=== PATIENT | male | born 1930 | race Caucasian/White ===

== ENCOUNTER 2017-04-11 08:29 | Inpatient (IN) | payer MEDICARE, OTHER ==
[~2017-04-11] VITALS: Ht 162.6 cm; Wt 75.0 kg
[~2017-04-11 08:29] MED LIST: CARV12.598 PO; CELE100C PO; CHOL50009 PO; CRES10 PO; FOLI-49 PO; LEFL20TA18 PO; LEVO300T5 PO
[2017-04-11] MEDS ORDERED: ONDANSETRON 4 MG INJ IV PRN (11:00)
[2017-04-11] MEDS ORDERED: FUROSEMIDE 40 MG INJ IV ONE (11:00)
[2017-04-11] MEDS ORDERED: ACETAMINOPHEN 325 MG TAB PO PRN (11:00)
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
--- NOTE | 2017-04-11 15:12 | RADRPT ---
PROCEDURE: XR Chest. CLINICAL INDICATION: Shortness of breath. TECHNIQUE: Single frontal view. COMPARISON: 05/01/2014. FINDINGS: There is bilateral interstitial disease consistent with pulmonary edema, worse than seen previously. There is no other airspace disease. The heart is mildly enlarged. There is a permanent biventricular pacemaker. Calcification is present in the aorta consistent with atherosclerosis. There is no pleural effusion or pneumothorax. There has been prior right shoulder surgery with metal hardware noted. IMPRESSION: 1. Pulmonary edema, worse than seen previously. 2. Cardiomegaly and atherosclerosis. 3. Permanent pacemaker. 4. Prior right shoulder surgery. RPTAT: QQ .Rohan Townsend MD, MD Date Time Electronically viewed and signed by .Rohan Townsend MD, MD on 04/11/2017 15:11 .R/
[2017-04-11 17:56] VITALS: Ht 162.6 cm; Wt 75.0 kg
[2017-04-11 18:06] VITALS: BP 123/60; PULSE 70; RESP 18
[2017-04-11 18:12] VITALS: PULSE 69
[2017-04-11 20:00] VITALS: PULSE 69
[2017-04-11 20:24] VITALS: BP 105/51; RESP 20
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
[2017-04-11] MEDS: SOD FERRIC GLUC COMPLX 125 MG in SOD CHLORIDE 0.9% 100 ML IVPB SCH (21:43)
[2017-04-11] MEDS: POTASSIUM CHLORIDE (SR) 8 MEQ CAP PO SCH (21:43)
[2017-04-11] MEDS: FUROSEMIDE 20 MG INJ IV SCH (21:43)
[2017-04-11] MEDS: FOLIC ACID 1 MG TAB GTB SCH (21:43)
--- NOTE | 2017-04-11 21:48 | CONS ---
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 He has had progressively worsening shortness of breath last 4-5 days, the worst over the past 2 days. He can't walk, he can't take care of himself due to of debilitating RA. He denies any chest pain,dizziness, loc , melena, hemoptysis, falls or diarrhea. The patient denies any fevers associated with this and came to the emergency room for evaluation. Patient denies any factors for his symptoms ROS Constitutional: fatigue, nausea, poor po, weight change, No chills, No diaphoresis, No disoriented, No febrile, No improved, No no complaints, No other Eyes: other (left eye blindness.), No discharge, No no complaints, No pain, No redness, No visual change ENT: No bleeding, No congestion, No discharge, No dysphagia, No no complaints, No other, No pain, No sore throat Respiratory: pleuritic pain, shortness of breath, No cough, No no complaints, No other, No pain, No sputum, No wheezing Cardiovascular: lightheadedness, orthopenea, palpitations, paroxysmal nocturnal dyspnea, No chest pain, No edema, No no complaints, No other Gastrointestinal: constipation, flatus, nausea, passing stool, No blood, No decreased appetite, No diarrhea, No no complaints, No other, No pain, No vomiting Genitourinary: dysuria, flank pain, No bleeding, No discharge, No hematuria, No no complaints, No other Musculoskeletal: back pain, bone/joint pain, neck pain, other (RA sequale.), restricted range of motion, No no complaints, No swelling Skin: bruising, pruritis, rash, skin lesions, No erythema, No laceration, No no complaints, No other Neurologic: dizziness, headache, No confusion, No focal-weakness, No no complaints, No other, No seizure, No syncope Endocrine: dry skin, weight change, No no complaints, No other, No polydypsia, No polyuria, No temp intolerance Psychological: anxiety, depression, No confusion, No nl mood/affect, No no complaints, No other, No suicidal PMH/Family/Social Past Medical History Medical History: angina, colitis, coronary artery disease, diverticulitis, GERD , GI bleed, high cholesterol, hypertension, hypothyroid, peptic ulcer disease, urinary tract infection Past Surgical History Past Surgical Hx: other (pacemakert implantation.) Family History Significant Family History: heart disease, COPD, hypertension Social History Alcohol Use: none Smoking Status: Never smoker Drug Use: none Eyes: other (left eye blindness.), No discharge, No no complaints, No pain, No redness, No visual change ENT: No bleeding, No congestion, No discharge, No dysphagia, No no complaints, No other, No pain, No sore throat Respiratory: pleuritic pain, shortness of breath, No cough, No no complaints, No other, No pain, No sputum, No wheezing Cardiovascular: lightheadedness, orthopenea, palpitations, paroxysmal nocturnal dyspnea, No chest pain, No edema, No no complaints, No other Gastrointestinal: constipation, flatus, nausea, passing stool, No blood, No decreased appetite, No diarrhea, No no complaints, No other, No pain, No vomiting Genitourinary: dysuria, flank pain, No bleeding, No discharge, No hematuria, No no complaints, No other Musculoskeletal: back pain, bone/joint pain, neck pain, other (RA sequale.), restricted range of motion, No no complaints, No swelling Skin: bruising, pruritis, rash, skin lesions, No erythema, No laceration, No no complaints, No other Neurologic: dizziness, headache, No confusion, No focal-weakness, No no complaints, No other, No seizure, No syncope Psychological: anxiety, depression, No confusion, No nl mood/affect, No no complaints, No other, No suicidal Past Medical History Medical History: angina, colitis, coronary artery disease, diverticulitis, GERD , GI bleed, high cholesterol, hypertension, hypothyroid, peptic ulcer disease, urinary tract infection Past Surgical History Past Surgical Hx: other (pacemakert implantation.) Social History Alcohol Use: none Smoking Status: Never smoker Drug Use: none Exam/Review of Systems Vital Signs Vitals Vital Signs Date Time Temp Pulse Resp B/P Pulse Ox O2 Delivery O2 Flow Rate FiO2 04/11/17 20:24 98.5 69 20 105/51 97 04/11/17 18:06 Nasal Cannula 2.0 Exam Exam Constitutional: alert, frail, oriented, other (malnurished.), well developed, No distress, No non-verbal Psych: anxiety, depression, No confusion, No nl mood/affect, No no complaints, No other, No suicidal Head: atraumatic, normocephalic, No hematomas, No lacerations, No other Eyes: EOMI, PERRL (left pupil is not clearly delineated.), nl lids, No fundi, disc, No icteric, No nl conjunctiva, No nl sclera, No other ENMT: nl nasal mucosa & septum Neck: bruits, jvd, nuchal rigidity Respiratory: congested cough, crackles/rales, diminished breath sounds, intercostal retraction, respirations, No clear to auscultation, No labored breathing, No normal air movement, No other, No tactile fremitus, No wheezing Cardiovascular: bruits, jugular venous distention (JVD), nl pulses, other ( palpable body of the left subclavian area pacemaker.), regular rate and rhythm, systolic murmur, No S3, No S4, No diastolic murmur, No edema, No gallop, No irregular rhythm, No murmurs/extra sounds, No rub Gastrointestinal: bowel sounds, nl liver, spleen, soft, No ascites, No distended, No firm, No hepatomegaly, No mass, No non-tender, No other, No rebound or guarding, No splenomegaly, No surgical scars, No tender Genitourinary - Male: nl penis, nl scrotum, No CVA tenderness, No discharge, No other Musculoskeletal: joint tenderness, muscle tone, muscle weakness, other (All classical adwanced RA sequale.) Extremities: other (scar of th left knee surgery and right shoulder surgeries. 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.), nl speech, numbness Skin: nl turgor (decreased.), No diaphoresis, No ecchymosis, No laceration, No other, No puncture, No rash or lesions Results Result Diagram: 04/11/17 0900 04/11/17 0900 Results 24 hrs Laboratory Tests Test 04/11/17 09:00 04/11/17 19:21 White Blood Count 10.8 Red Blood Count 2.64 #L Hemoglobin 7.8 #L Hematocrit 25.2 #L Mean Corpuscular Volume 95.5 Mean Corpuscular Hemoglobin 29.5 Mean Corpuscular Hemoglobin Concent 31.0 L Red Cell Distribution Width 14.2 Platelet Count 335 Mean Platelet Volume 9.7 Neutrophils % 58.4 Lymphocytes % 26.1 Monocytes % 7.0 Eosinophils % 7.6 H Basophils % 0.3 Nucleated Red Blood Cells % 0.0 Neutrophils # 6.3 Lymphocytes # 2.8 Monocytes # 0.8 Eosinophils # 0.8 H Basophils # 0.0 Nucleated Red Blood Cells # 0.0 Sodium Level 144 Potassium Level 4.0 Chloride Level 114 H Carbon Dioxide Level 23 Anion Gap 11 Blood Urea Nitrogen 22 H Creatinine 1.34 H Glucose Level 102 Calcium Level 8.3 L Iron Level 30 L Total Iron Binding Capacity 183 L Percent Iron Saturation 16 L Troponin I < 0.012 < 0.012 B-Type Natriuretic Peptide 2250 H Magnesium Level 1.8 Creatine Kinase 24 Creatine Kinase Index 9.5 Creatinine Kinase MB (Mass) 2.27 Medications Medications Current Medications Influenza Virus Vaccine (Fluzone) 0.5 ml ONCE ONCE IM* ; Start 04/13/17 at 09: 00; Stop 04/13/17 at 09:01 Enalapril Maleate (Vasotec) 2.5 mg DAILY PO ; Start 04/11/17 at 20:00 Pantoprazole (Protonix Tab) 40 mg DAILY@06 PO ; Start 04/12/17 at 06:00 Potassium Chloride 8 meq 8 meq DAILY PO Last administered on 04/11/17 21:43; Admin Dose 8 MEQ; Start 04/11/17 at 20:00 Ferric Sodium Gluconate Complex/ Sodium Chloride (Ferrlecit/NS) 110 ml @ 110 mls/hr Q24H IVPB Last administered on 04/11/17 21:43; Admin Dose 110 MLS/HR; Start 04/11/17 at 21:00; Stop 04/15/17 at 21:59 Levothyroxine Sodium (Synthroid) 50 mcg DAILY@06 PO ; Start 04/12/17 at 06:00 Folic Acid (Folic Acid) 1 mg DAILY GTB Last administered on 04/11/17 21:43; Admin Dose 1 MG; Start 04/11/17 at 20:00 IRASEMA ARAMBULA MD Apr 11, 2017 21:48
[2017-04-11] MEDS: ENALAPRIL 2.5 MG TAB PO SCH (23:30)
[2017-04-12] VITALS (15 sets, daily range): BP systolic 73–109; BP diastolic 41–79; PULSE 69–72; RESP 16–30
[2017-04-12] MEDS ORDERED: LEVOTHYROXINE 50 MCG TAB PO SCH (06:00)
[2017-04-12] MEDS: PANTOPRAZOLE (EC) 40 MG TAB PO SCH (06:05)
[2017-04-12] MEDS: FUROSEMIDE 20 MG INJ IV SCH ×2 (06:05→16:31)
[2017-04-12] MEDS: FOLIC ACID 1 MG TAB GTB SCH (09:00)
--- NOTE | 2017-04-12 09:07 | CONS ---
Date/Time of Note Date/Time of Note DATE: 04/12/17 TIME: 08:57 Assessment/Plan Assessment/Plan Chief Complaint/Hosp Course Dyspnea: Currently being treated for CHF which is certainly contributing but his JVP appears flat on exam but he has significant fine crackles. I wonder if he has a component of interstitial lung disease/pulmonary fibrosis from his RA. CT chest would be reasonable to evaluate Acute on chronic diastolic heart failure: Mild on exam. Last known EF 2014 was normal. Dual chamber PPM: 100% paced RA: ?contributing to above -continue lasix for now at current dose -add home coreg at lower dose as marginal BP, coreg 3.125mg BID -high resolution chest CT to eval for ILD -check echo Problems: Consultation Date/Type/Reason Admit Date/Time Apr 11, 2017 at 10:58 Date of Consultation: Apr 12, 2017 Type of Consultation: Cardiology Reason for Consultation CHF Referring Provider: MADDIE MICHAELS MD Hx of Present Illness 87 yo M with a h/o diastolic heart failure, dual chamber PPM, severe RA with significant physical limitation, who was admitted for SOB and is being treated for CHF exacerbation. The pt notes that he has had 2 days of worsening SOB and orthopnea but he now feels back to his baseline. He is not very active due to bilateral knee pain (had replacement of both per history). He can only take a few steps with his walker. No chest pain. No prior [place]. EF 2014 was preserved. His senior investment manager is Dr. Alvarado. per HPI, otherwise negative Past Medical History per HPI Medical History: angina, colitis, coronary artery disease, diverticulitis, GERD , GI bleed, high cholesterol, hypertension, hypothyroid, peptic ulcer disease, urinary tract infection Past Surgical History Past Surgical Hx: other (pacemakert implantation.) Social History Alcohol Use: none Smoking Status: Never smoker Drug Use: none Exam/Review of Systems Vital Signs Vitals Vital Signs Date Time Temp Pulse Resp B/P Pulse Ox O2 Delivery O2 Flow Rate FiO2 04/12/17 08:21 69 04/12/17 07:03 98.6 18 109/55 99 04/12/17 00:00 Nasal Cannula 3.0 Intake and Output 04/11/17 04/11/17 04/12/17 15:00 23:00 07:00 Intake Total 280 ml Output Total 500 ml Balance -220 ml Exam Constitutional: alert, oriented Psych: nl mood/affect, no complaints Head: atraumatic, normocephalic Neck: supple, No jvd Respiratory: crackles/rales, No clear to auscultation (fine crackles to 2/6 lungs) Cardiovascular: regular rate and rhythm, systolic murmur (2/6 GOLDEN), No edema Gastrointestinal: non-tender, soft, No distended Musculoskeletal: nl extremities to inspection Extremities: No cyanosis 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: nl mental status, nl speech Skin: No rash or lesions Results EKG: V-paced Result Diagram: 04/12/1772504/12/17725 Results 24 hrs Laboratory Tests Test 04/11/17 09:00 04/11/17 19:21 04/11/17 20:45 04/12/17 00:55 White Blood Count 10.8 Red Blood Count 2.64 #L Hemoglobin 7.8 #L Hematocrit 25.2 #L Mean Corpuscular Volume 95.5 Mean Corpuscular Hemoglobin 29.5 Mean Corpuscular Hemoglobin Concent 31.0 L Red Cell Distribution Width 14.2 Platelet Count 335 Mean Platelet Volume 9.7 Neutrophils % 58.4 Lymphocytes % 26.1 Monocytes % 7.0 Eosinophils % 7.6 H Basophils % 0.3 Nucleated Red Blood Cells % 0.0 Neutrophils # 6.3 Lymphocytes # 2.8 Monocytes # 0.8 Eosinophils # 0.8 H Basophils # 0.0 Nucleated Red Blood Cells # 0.0 Sodium Level 144 Potassium Level 4.0 Chloride Level 114 H Carbon Dioxide Level 23 Anion Gap 11 Blood Urea Nitrogen 22 H Creatinine 1.34 H Glucose Level 102 Calcium Level 8.3 L Iron Level 30 L Total Iron Binding Capacity 183 L Percent Iron Saturation 16 L Troponin I < 0.012 < 0.012 0.019 B-Type Natriuretic Peptide 2250 H Magnesium Level 1.8 Creatine Kinase 24 21 L Creatine Kinase Index 9.5 9.3 Creatinine Kinase MB (Mass) 2.27 1.96 Erythrocyte Sedimentation Rate 110 H Absolute Reticulocyte Count 0.053 Percent Reticulocyte Count 1.6 H Uric Acid 10.0 H Ferritin 256.0 Lactate Dehydrogenase 511 Carcinoembryonic Antigen 3.7 Vitamin B12 Level 841 Folate > 20.0 H Thyroid Stimulating Hormone (TSH) 5.890 H Test 04/12/17 07:26 White Blood Count 9.8 Red Blood Count 3.49 #L Hemoglobin 10.0 #L Hematocrit 33.4 #L Mean Corpuscular Volume 95.7 Mean Corpuscular Hemoglobin 28.7 L Mean Corpuscular Hemoglobin Concent 29.9 L Red Cell Distribution Width 14.5 Platelet Count 390 Mean Platelet Volume 10.0 Neutrophils % 51.1 Lymphocytes % 31.2 Monocytes % 7.2 Eosinophils % 9.5 H Basophils % 0.4 Nucleated Red Blood Cells % 0.0 Neutrophils # 5.0 Lymphocytes # 3.1 H Monocytes # 0.7 Eosinophils # 0.9 H Basophils # 0.0 Nucleated Red Blood Cells # 0.0 Sodium Level 145 H Potassium Level 4.2 Chloride Level 106 Carbon Dioxide Level 32 H Anion Gap 11 Blood Urea Nitrogen 28 H Creatinine 1.77 H Glucose Level 109 Calcium Level 9.7 Total Bilirubin 0.2 Direct Bilirubin 0.00 Indirect Bilirubin 0.2 Aspartate Amino Transf (AST/SGOT) 31 Alanine Aminotransferase (ALT/SGPT) 23 Alkaline Phosphatase 99 Total Protein 8.1 Albumin 3.4 Globulin 4.70 H Albumin/Globulin Ratio 0.72 Thyroid Stimulating Hormone (TSH) Pending Medications Medications Current Medications Influenza Virus Vaccine (Fluzone) 0.5 ml ONCE ONCE IM* ; Start 04/13/17 at 09: 00; Stop 04/13/17 at 09:01 Enalapril Maleate (Vasotec) 2.5 mg DAILY PO ; Start 04/11/17 at 20:00 Pantoprazole (Protonix Tab) 40 mg DAILY@06 PO Last administered on 04/12/17 06:05; Admin Dose 40 MG; Start 04/12/17 at 06:00 Potassium Chloride 8 meq 8 meq DAILY PO Last administered on 04/11/17 21:43; Admin Dose 8 MEQ; Start 04/11/17 at 20:00 Ferric Sodium Gluconate Complex/ Sodium Chloride (Ferrlecit/NS) 110 ml @ 110 mls/hr Q24H IVPB Last administered on 04/11/17 21:43; Admin Dose 110 MLS/HR; Start 04/11/17 at 21:00; Stop 04/15/17 at 21:59 Levothyroxine Sodium (Synthroid) 50 mcg DAILY@06 PO Last administered on 06:06; Admin Dose 50 MCG; Start 04/12/17 at 06:00 Folic Acid (Folic Acid) 1 mg DAILY GTB Last administered on 04/11/17t 21:43; Admin Dose 1 MG; Start 04/11/17 at 20:00 ROBERT DOZIER Apr 12, 2017 09:07
[2017-04-12] MEDS: POTASSIUM CHLORIDE (SR) 8 MEQ CAP PO SCH (09:10)
[2017-04-12] MEDS: ENALAPRIL 2.5 MG TAB PO SCH (09:11)
--- NOTE | 2017-04-12 09:46 | PN ---
Date/Time of Note Date/Time of Note DATE: 04/12/17 TIME: 09:39 Assessment/Plan VTE Prophylaxis VTE Prophylaxis Intervention: ambulation, anti-embolic stocking VTE Contraindication Reason: peripheral vascular disease Lines/Catheters IV Catheter Type (from Nrsg): Saline [employer] Central line still needed: No Urinary Cath still in place: No Reason Cath still needed: urinary retention Assessment/Plan Assessment/Plan 1.CHF systolic on diastolic- iproving 2.Pulmonary edema- resolved 3.Rheumatoid arthritis with severe deformity of the right hand more prominent than the left. 4. History of anemia with recent more drop of h&h. 5. History of ischemic heart disease, angina, status post myocardial infarction. 6. History of irregular heart beat and ICD versus pacemaker implantation. 7. Dyslipidemia. 8. Hypothyroidism. 9. Pain syndrome. 10. Unstable gait. 11. Major depression. 12. Hearing impairment. 13. Memory impairment. 14. Posttraumatic stress disorder. His son from complications of malignant melanoma. Family is very supportive. 15.Status post fracture of the right shoulder, status post open reduction internal fixation. 16. Status post fracture and reduction of the left knee, status post knee replacement along with revision and change of prosthesis most probably. 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 Now creat 1.77; elevated. Subjective 24 Hr Interval Summary Constitutional: poor po, requiring IVF, requiring O2, No chills, No diaphoresis, No disoriented, No febrile, No improved, No no complaints, No other Eyes: visual change, No discharge, No no complaints, No other, No pain, No redness ENT: No bleeding, No congestion, No discharge, No dysphagia, No no complaints, No other, No pain, No sore throat Respiratory: shortness of breath, No cough, No no complaints, No other, No pain, No pleuritic pain, No sputum, No wheezing Cardiovascular: paroxysmal nocturnal dyspnea (improved.), No chest pain, No edema, No lightheadedness, No no complaints, No orthopenea , No other, No palpitations Gastrointestinal: decreased appetite, nausea, passing stool, No blood, No constipation, No diarrhea, No flatus, No no complaints, No other , No pain, No vomiting Genitourinary: flank pain, No bleeding, No discharge, No dysuria, No hematuria, No no complaints, No other Exam/Review of Systems Vital Signs Vitals Vital Signs Date Time Temp Pulse Resp B/P Pulse Ox O2 Delivery O2 Flow Rate FiO2 04/12/17 08:21 69 04/12/17 07:03 98.6 18 109/55 99 04/12/17 00:00 Nasal Cannula 3.0 Intake and Output 04/11/17 04/11/17 04/12/17 15:00 23:00 07:00 Intake Total 280 ml Output Total 500 ml Balance -220 ml Exam Constitutional: alert, oriented, well developed, No distress, No frail, No non-verbal, No obese, No other Psych: nl mood/affect, No anxiety, No confusion, No depression, No no complaints, No other, No suicidal Head: atraumatic, No hematomas, No lacerations, No normocephalic, No other Eyes: EOMI, nl lids (left lid is swollen.) ENMT: intubated, nl nasal mucosa & septum Neck: jvd (less prominent than yesterday.), nuchal rigidity, No bruits, No masses, No non-tender, No other, No thyromegaly Respiratory: clear to auscultation (uipper parts.), crackles/rales (lower parts.), respirations, tactile fremitus, No congested cough, No diminished breath sounds, No intercostal retraction, No labored breathing, No normal air movement, No other, No wheezing Cardiovascular: bruits, jugular venous distention (JVD), systolic murmur, No S3, No S4, No diastolic murmur, No edema, No gallop, No irregular rhythm, No murmurs/extra sounds, No nl pulses, No other, No regular rate and rhythm, No rub Gastrointestinal: bowel sounds, nl liver, spleen, soft, No ascites, No distended, No firm, No hepatomegaly, No mass, No non-tender, No other, No rebound or guarding, No splenomegaly, No surgical scars, No tender Genitourinary - Male: CVA tenderness, nl penis, nl scrotum, No discharge, No other Musculoskeletal: joint tenderness (RA changes, adwanced.), muscle tone, muscle weakness, other (unable to get up without help.), No nl extremities to inspection, No nl gait and stance, No range of motion, No spine non-tender, No swelling Extremities: No calf tenderness, No clubbing, No cyanosis, No edema, No normal pulses, No other, No palpable cord, No pitting pedal edema, No tenderness 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: nl mental status (more active and cooperative.), nl speech, numbness, No HUMAN RESOURCES OPERATIONS DIRECTOR II-XII intact, No DTR's symmetric, No confused, No focal weakness, No lethargic, No nl strength, No other, No reflexes, No unresponsive Skin: No diaphoresis, No ecchymosis, No laceration, No nl turgor, No other, No puncture, No rash or lesions Results Result Diagram: 04/12/17 0726 04/12/17 0726 Results 24 hrs Laboratory Tests Test 04/11/17 19:21 04/11/17 20:45 04/12/17 00:55 04/12/17 07:26 Magnesium Level 1.8 Creatine Kinase 24 21 L Creatine Kinase Index 9.5 9.3 Creatinine Kinase MB (Mass) 2.27 1.96 Troponin I < 0.012 0.019 Erythrocyte Sedimentation Rate 110 H Absolute Reticulocyte Count 0.053 Percent Reticulocyte Count 1.6 H Uric Acid 10.0 H Ferritin 256.0 Lactate Dehydrogenase 511 Carcinoembryonic Antigen 3.7 Vitamin B12 Level 841 Folate > 20.0 H Thyroid Stimulating Hormone (TSH) 5.890 H 6.320 H White Blood Count 9.8 Red Blood Count 3.49 #L Hemoglobin 10.0 #L Hematocrit 33.4 #L Mean Corpuscular Volume 95.7 Mean Corpuscular Hemoglobin 28.7 L Mean Corpuscular Hemoglobin Concent 29.9 L Red Cell Distribution Width 14.5 Platelet Count 390 Mean Platelet Volume 10.0 Neutrophils % 51.1 Lymphocytes % 31.2 Monocytes % 7.2 Eosinophils % 9.5 H Basophils % 0.4 Nucleated Red Blood Cells % 0.0 Neutrophils # 5.0 Lymphocytes # 3.1 H Monocytes # 0.7 Eosinophils # 0.9 H Basophils # 0.0 Nucleated Red Blood Cells # 0.0 Sodium Level 145 H Potassium Level 4.2 Chloride Level 106 Carbon Dioxide Level 32 H Anion Gap 11 Blood Urea Nitrogen 28 H Creatinine 1.77 H Glucose Level 109 Calcium Level 9.7 Total Bilirubin 0.2 Direct Bilirubin 0.00 Indirect Bilirubin 0.2 Aspartate Amino Transf (AST/SGOT) 31 Alanine Aminotransferase (ALT/SGPT) 23 Alkaline Phosphatase 99 Total Protein 8.1 Albumin 3.4 Globulin 4.70 H Albumin/Globulin Ratio 0.72 Medications Medications Current Medications Influenza Virus Vaccine (Fluzone) 0.5 ml ONCE ONCE IM* ; Start 04/13/17 at 09: 00; Stop 04/13/17 at 09:01 Enalapril Maleate (Vasotec) 2.5 mg DAILY PO Last administered on 04/12/17 09: 11; Admin Dose 2.5 MG; Start 04/11/17 at 20:00 Pantoprazole (Protonix Tab) 40 mg DAILY@06 PO Last administered on 04/12/17 06:05; Admin Dose 40 MG; Start 04/12/17 at 06:00 Potassium Chloride 8 meq 8 meq DAILY PO Last administered on 04/12/17 09:10; Admin Dose 8 MEQ; Start 04/11/17 at 20:00 Ferric Sodium Gluconate Complex/ Sodium Chloride (Ferrlecit/NS) 110 ml @ 110 mls/hr Q24H IVPB Last administered on 04/11/17 21:43; Admin Dose 110 MLS/HR; Start 04/11/17 at 21:00; Stop 04/15/17 at 21:59 Levothyroxine Sodium (Synthroid) 50 mcg DAILY@06 PO Last administered on 06:06; Admin Dose 50 MCG; Start 04/12/17 at 06:00 Folic Acid (Folic Acid) 1 mg DAILY GTB Last administered on 04/11/17 21:43; Admin Dose 1 MG; Start 04/11/17 at 20:00 Carvedilol (Coreg) 3.125 mg BID PO Last administered on 04/12/17 09:11; Admin Dose 3.125 MG; Start 04/12/17 at 09:30 MADDIE MICHAELS MD Apr 12, 2017 09:46
[2017-04-12] MEDS: MAGNESIUM SULFATE 2 GM/50 ML 50 ML IVPB SCH (10:19)
--- NOTE | 2017-04-12 12:26 | CONS ---
Date/Time of Note Date/Time of Note DATE: 04/12/17 TIME: 12:20 Assessment/Plan Assessment/Plan Additional Assessment/Plan Chest x-ray was reviewed from yesterday which is showing severe fibrotic lung disease. Assessment and recommendations; 1. Patient admitted with shortness of breath is likely is from underlying rheumatoid lung. 2. Difficult to rule out superimposed CHF. 3. History of hypo-thyroidism, history of cardiac arrhythmia. 4. Patient on chronic immunomodulator. Continue current treatment. Obtain 2D echocardiogram. Consultation Date/Type/Reason Admit Date/Time Apr 11, 2017 at 10:58 Date of Consultation: Apr 12, 2017 Type of Consultation: Pulmonary Reason for Consultation Pulmonary consultation requested for evaluation of shortness of breath. Referring physician; Dr. Sky. History of presenting illness; patient is a pleasant 87-year-old white male who was brought into the hospital yesterday by his granddaughter with complaints of shortness of breath going on for the last several weeks. Patient however denies any fever, chest pain, wheezing, cough or any sputum production. Past medical history; 1. Patient with history of advanced rheumatoid arthritis. 2. Patient on chronic immunomodulator with Embrel. 3. History of CHF in the past. 4. History of cardiac arrhythmia, status post pacemaker placement. 5. History of hypothyroidism. 6. History of left knee surgery. 7. History of bilateral cataract surgery. Medications; reviewed. Allergies; none. Social history; patient has a very remote history of very scant smoking. Family history; patient is a . Has 2 living children. No history of any illnesses in the family. 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 Review of systems; denies any headache, visual changes. Any sinus symptoms. Any chest pain. Complains of shortness of breath which has improved. Denies any wheezing. Any sputum production. Denies any abdominal pain, nausea vomiting. Denies any melena or hematochezia. Complains of severe arthritis in hands. Denies any skin changes. Complains of chronic dyspnea on exertion. Complains of chronic orthopnea. Patient has steady weight. General exam; elderly male, awake and alert. Currently in no distress. Constitutional: poor po, requiring IVF, requiring O2, No chills, No diaphoresis, No disoriented, No febrile, No improved, No no complaints, No other Eyes: other (left eye blindness.), No discharge, No no complaints, No pain, No redness, No visual change ENT: No bleeding, No congestion, No discharge, No dysphagia, No no complaints, No other, No pain, No sore throat Respiratory: pleuritic pain, shortness of breath, No cough, No no complaints, No other, No pain, No sputum, No wheezing Cardiovascular: lightheadedness, orthopenea, palpitations, paroxysmal nocturnal dyspnea, No chest pain, No edema, No no complaints, No other Gastrointestinal: constipation, flatus, nausea, passing stool, No blood, No decreased appetite, No diarrhea, No no complaints, No other, No pain, No vomiting Genitourinary: dysuria, flank pain, No bleeding, No discharge, No hematuria, No no complaints, No other Musculoskeletal: back pain, bone/joint pain, neck pain, other (RA sequale.), restricted range of motion, No no complaints, No swelling Skin: bruising, pruritis, rash, skin lesions, No erythema, No laceration, No no complaints, No other Neurologic: dizziness, headache, No confusion, No focal-weakness, No no complaints, No other, No seizure, No syncope Psychological: anxiety, depression, No confusion, No nl mood/affect, No no complaints, No other, No suicidal Past Medical History Medical History: angina, colitis, coronary artery disease, diverticulitis, GERD , GI bleed, high cholesterol, hypertension, hypothyroid, peptic ulcer disease, urinary tract infection Past Surgical History Past Surgical Hx: other (pacemakert implantation.) Social History Alcohol Use: none Smoking Status: Never smoker Drug Use: none Exam/Review of Systems Vital Signs Vitals Vital Signs Date Time Temp Pulse Resp B/P Pulse Ox O2 Delivery O2 Flow Rate FiO2 04/12/17 12:15 69 04/12/17 11:27 98.4 104/56 04/12/17 07:03 18 99 04/12/17 00:00 Nasal Cannula 3.0 Intake and Output 04/11/17 04/11/17 04/12/17 15:00 23:00 07:00 Intake Total 280 ml Output Total 500 ml Balance -220 ml Exam HEENT exam; supple neck, no JVD. No lymphadenopathy. Midline trachea. No thyromegaly. Patient is edentulous and wears dentures. Has a left corneal opacity. Has bilateral intraocular lens implants. Chest exam; scattered crackles bilaterally. S1-S2 audible, no murmurs. Irregular rhythm. Pacemaker in left chest wall. Abdomen exam; soft, nontender. No organomegaly. Bowel sounds audible. Extremity exam; there are severe changes of rheumatoid arthritis involving both hands. There is a well-healed left knee scar. There is no peripheral edema. No clubbing. Pulses 1+ bilaterally. 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 Results Result Diagram: 04/12/17 0726 04/12/17 0726 Results 24 hrs Laboratory Tests Test 04/11/17 19:21 04/11/17 20:45 04/12/17 00:55 04/12/17 07:26 Magnesium Level 1.8 Creatine Kinase 24 21 L Creatine Kinase Index 9.5 9.3 Creatinine Kinase MB (Mass) 2.27 1.96 Troponin I < 0.012 0.019 Erythrocyte Sedimentation Rate 110 H Absolute Reticulocyte Count 0.053 Percent Reticulocyte Count 1.6 H Uric Acid 10.0 H Ferritin 256.0 Lactate Dehydrogenase 511 Carcinoembryonic Antigen 3.7 Vitamin B12 Level 841 Folate > 20.0 H Thyroid Stimulating Hormone (TSH) 5.890 H 6.320 H White Blood Count 9.8 Red Blood Count 3.49 #L Hemoglobin 10.0 #L Hematocrit 33.4 #L Mean Corpuscular Volume 95.7 Mean Corpuscular Hemoglobin 28.7 L Mean Corpuscular Hemoglobin Concent 29.9 L Red Cell Distribution Width 14.5 Platelet Count 390 Mean Platelet Volume 10.0 Neutrophils % 51.1 Lymphocytes % 31.2 Monocytes % 7.2 Eosinophils % 9.5 H Basophils % 0.4 Nucleated Red Blood Cells % 0.0 Neutrophils # 5.0 Lymphocytes # 3.1 H Monocytes # 0.7 Eosinophils # 0.9 H Basophils # 0.0 Nucleated Red Blood Cells # 0.0 Sodium Level 145 H Potassium Level 4.2 Chloride Level 106 Carbon Dioxide Level 32 H Anion Gap 11 Blood Urea Nitrogen 28 H Creatinine 1.77 H Glucose Level 109 Calcium Level 9.7 Total Bilirubin 0.2 Direct Bilirubin 0.00 Indirect Bilirubin 0.2 Aspartate Amino Transf (AST/SGOT) 31 Alanine Aminotransferase (ALT/SGPT) 23 Alkaline Phosphatase 99 Total Protein 8.1 Albumin 3.4 Globulin 4.70 H Albumin/Globulin Ratio 0.72 Medications Medications Current Medications Influenza Virus Vaccine (Fluzone) 0.5 ml ONCE ONCE IM* ; Start 04/13/17 at 09: 00; Stop 04/13/17 at 09:01 Enalapril Maleate (Vasotec) 2.5 mg DAILY PO Last administered on 04/12/17 09: 11; Admin Dose 2.5 MG; Start 04/11/17 at 20:00 Pantoprazole (Protonix Tab) 40 mg DAILY@06 PO Last administered on 04/12/17 06:05; Admin Dose 40 MG; Start 04/12/17 at 06:00 Potassium Chloride 8 meq 8 meq DAILY PO Last administered on 04/12/17 09:10; Admin Dose 8 MEQ; Start 04/11/17 at 20:00 Ferric Sodium Gluconate Complex/ Sodium Chloride (Ferrlecit/NS) 110 ml @ 110 mls/hr Q24H IVPB Last administered on 04/11/17 21:43; Admin Dose 110 MLS/HR; Start 04/11/17 at 21:00; Stop 04/15/17 at 21:59 Folic Acid (Folic Acid) 1 mg DAILY GTB Last administered on 04/11/17 21:43; Admin Dose 1 MG; Start 04/11/17 at 20:00 Carvedilol 3.125 mg 3.125 mg BID PO Last administered on 04/12/17 09:11; Admin Dose 3.125 MG; Start 04/12/17 at 09:30 Magnesium Sulfate (Magnesium Sulfate 2 Gm/50 ml) 50 ml @ 25 mls/hr DAILY IVPB Last administered on 04/12/17 10:19; Admin Dose 25 MLS/HR; Start 04/12/17 at 10:00; Stop 04/13/17 at 09:00 Levothyroxine Sodium (Synthroid) 75 mcg DAILY@06 PO ; Start 04/13/17 at 06:00 MARC BLANCO Apr 12, 2017 12:26
--- NOTE | 2017-04-12 13:14 | RADRPT ---
PROCEDURE: XR Right Shoulder. CLINICAL INDICATION: Right shoulder pain. TECHNIQUE: Two views. Frontal internal rotation and frontal external rotation. COMPARISON: No prior study is available for comparison. FINDINGS: There is a ronaldo in the shaft of the right humerus. Locking screws are present proximally and distally . Alignment of a healed fracture of the shaft of the humerus is anatomic. There are degenerative shekhar nges of the right elbow. There is no acute fracture or dislocation. The articular surfaces are otherwise intact. There is no lytic or blastic lesion. IMPRESSION: 1. Prior open reduction and internal fixation. 2. Degenerative changes of the right elbow. 3. No acute abnormality. RPTAT: QQ .Rohan Townsend MD, Date Time Electronically viewed and signed by .Rohan Townsend MD, on 04/12/2017 13:14 .R/
--- NOTE | 2017-04-12 13:15 | RADRPT ---
PROCEDURE: Right knee radiographs. CLINICAL INDICATION: Right knee pain. Postop. TECHNIQUE: Two views. Frontal and lateral. COMPARISON: No prior studies are available for comparison. FINDINGS: There is no fracture or dislocation. Vascular calcifications are present consistent with atherosclerosis. There is a total right knee arthroplasty which appears satisfactory. There is no lytic or blastic lesion. IMPRESSION: 1. Atherosclerosis. 2. Otherwise unremarkable postoperative appearance of the right knee. RPTAT: QQ .Rohan Townsend MD, MD Date Time Electronically viewed and signed by .Rohan Townsend MD, MD on 04/12/2017 13:15 .R/
--- NOTE | 2017-04-12 13:18 | RADRPT ---
PROCEDURE: XR Left Knee. CLINICAL INDICATION: Left knee pain. Postop. TECHNIQUE: Two views. Frontal and lateral. COMPARISON: No prior studies are available for comparison. FINDINGS: There is no fracture or dislocation. Vascular calcifications are present consistent with atherosclerosis. 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 There is no lytic or blastic lesion. IMPRESSION: 1. Satisfactory postoperative appearance of the left knee. 2. Atherosclerosis. RPTAT: QQ .Rohan Townsend MD, MD Date Time Electronically viewed and signed by .Rohan Townsend MD, on 04/12/2017 13:18 .R/
--- NOTE | 2017-04-12 13:19 | RADRPT ---
PROCEDURE: XR Pelvis. CLINICAL INDICATION: Pelvic pain. TECHNIQUE: Single AP view of the pelvis. COMPARISON: No prior studies are available for comparison. FINDINGS: There is no fracture or dislocation. There is no lytic or blastic lesion. The hip joints are unremarkable. There are degenerative changes of the lower lumbar spine. Vascular calcifications are present consistent with atherosclerosis. The sacroiliac joints are grossly unremarkable. There is diffuse osteopenia. IMPRESSION: 1. Degenerative changes of the lower lumbar spine. 2. Atherosclerosis. 3. Diffuse osteopenia. RPTAT: QQ .Rohan Townsend MD, MD Date Time Electronically viewed and signed by .Rohan Townsend MD, on 04/12/2017 13:19 .R/
--- NOTE | 2017-04-12 13:52 | RADRPT ---
Echocardiogram Report Patient Name: MAU WALLS Gender: Male Date: 1930 Study Date: 12-Apr-2017 Government Contracts Manager: Fred Hameed [facility] Location: 514 Ref. Physician: ROBERT DOZIER Quality: Adequate Procedures: Transthoracic echocardiogram with complete 2D, M-Mode, and doppler examination. Indications: Congestive Heart Failure. Shortness of breath. 2D/M Mode Doppler Measurement Value Normal Ranges Measurement Value Normal Ranges LVIDd 2D 3.9 3.5 - 5.6 cm AV Peak Lenny 1.3 m/sec LVIDs 2D 3.1 2.1 - 4.1 cm AV Peak PG 7.0 mmHg FS 2D 18.9 % LVOT Peak Lenny 0.8 m/sec LVPWd 2D 1.3 0.6 - 1.1 cm LVOT Peak PG 3.0 mmHg IVSd 2D 1.5 0.6 - 1.1 cm MV E Peak Lenny 0.4 m/sec IVS/LVPW 2D 1.1 MV A Peak Lenny 0.6 m/sec AoR Diam 2D 3.3 2.0 - 3.7 cm MV E/A 0.8 LA/Ao 2D 1 0 - 1 MV Decel Time 155 msec EDV 2D 57.5 cm3 MV E/A 0.8 ESV 2D 30.7 cm3 TR Peak Lenny 2.7 m/sec LA Dimen 2D 3.6 2.3 - 4.0 cm TR Peak PG 29.0 mmHg RVSP 32.0 mmHg Findings Left Ventricle: Normal left ventricular systolic function. Normal left ventricular cavity size. Moderate concentric left ventricular hypertrophy. Ejection fraction is visually estimated at 55 %. Tissue Doppler/Mitral Doppler indices are consistent with impaired relaxation (Stage I diastolic dysfunction). Right Ventricle: Normal right ventricular size. Normal right ventricular systolic function. Left Atrium: The left atrium is normal in size. Right Atrium: The right atrium is normal in size. Mitral Valve: Mitral valve leaflets appear mildly thickened. Mild mitral annular calcification. There is trace to mild mitral valve regurgitation. Aortic Valve: Normal appearance of the aortic valve. No significant aortic stenosis or insufficiency. Tricuspid Valve: Normal appearance of the tricuspid valve. Estimated peak PA systolic pressure 32 mmHg. There is mild tricuspid regurgitation. Pulmonic Valve: Normal pulmonic valve appearance. Pericardium: Normal pericardium with no significant pericardial effusion. Aorta: Normal aortic root. IVC: Normal size and normal respiratory collapse consistent with normal right atrial pressure. Conclusions 1.The left ventricle is normal in size and systolic function. 2.Estimated left ventricular ejection fraction of 55%. 3.Moderate concentric left ventricular hypertrophy. Grade 1 diastolic dysfunction. Electronically Signed By: Akshat Chaudhari 12-Apr-2017 13:51:42 -0700 Patient Name: MAU WALLS Study Date: 12-Apr-2017 [id number]
--- NOTE | 2017-04-12 13:52 | RADRPT ---
Echocardiogram Report Patient Name: MAU WALLS Gender: Male Date: 1930 Study Date: 12-Apr-2017 Manufacturing Machine Operator: Fred Hameed [facility] Location: 514 Ref. Physician: ROBERT DOZIER Quality: Adequate Procedures: Transthoracic echocardiogram with complete 2D, M-Mode, and doppler examination. Indications: Congestive Heart Failure. Shortness of breath. 2D/M Mode Doppler Measurement Value Normal Ranges Measurement Value Normal Ranges LVIDd 2D 3.9 3.5 - 5.6 cm AV Peak Lenny 1.3 m/sec LVIDs 2D 3.1 2.1 - 4.1 cm AV Peak PG 7.0 mmHg FS 2D 18.9 % LVOT Peak Lenny 0.8 m/sec LVPWd 2D 1.3 0.6 - 1.1 cm LVOT Peak PG 3.0 mmHg IVSd 2D 1.5 0.6 - 1.1 cm MV E Peak Lenny 0.4 m/sec IVS/LVPW 2D 1.1 MV A Peak Lenny 0.6 m/sec AoR Diam 2D 3.3 2.0 - 3.7 cm MV E/A 0.8 LA/Ao 2D 1 0 - 1 MV Decel Time 155 msec EDV 2D 57.5 cm3 MV E/A 0.8 ESV 2D 30.7 cm3 TR Peak Lenny 2.7 m/sec LA Dimen 2D 3.6 2.3 - 4.0 cm TR Peak PG 29.0 mmHg RVSP 32.0 mmHg Findings Left Ventricle: Normal left ventricular systolic function. Normal left ventricular cavity size. Moderate concentric left ventricular hypertrophy. Ejection fraction is visually estimated at 55 %. Tissue Doppler/Mitral Doppler indices are consistent with impaired relaxation (Stage I diastolic dysfunction). Right Ventricle: Normal right ventricular size. Normal right ventricular systolic function. Left Atrium: The left atrium is normal in size. Right Atrium: The right atrium is normal in size. Mitral Valve: Mitral valve leaflets appear mildly thickened. Mild mitral annular calcification. There is trace to mild mitral valve regurgitation. Aortic Valve: Normal appearance of the aortic valve. No significant aortic stenosis or insufficiency. Tricuspid Valve: Normal appearance of the tricuspid valve. Estimated peak PA systolic pressure 32 mmHg. There is mild tricuspid regurgitation. Pulmonic Valve: Normal pulmonic valve appearance. Pericardium: Normal pericardium with no significant pericardial effusion. Aorta: Normal aortic root. IVC: Normal size and normal respiratory collapse consistent with normal right atrial pressure. Conclusions 1.The left ventricle is normal in size and systolic function. 2.Estimated left ventricular ejection fraction of 55%. 3.Moderate concentric left ventricular hypertrophy. Grade 1 diastolic dysfunction. Electronically Signed By: Akshat Chaudhari 12-Apr-2017 13:51:42 -0700 Patient Name: MAU WALLS Study Date: 12-Apr-2017 [id number]
--- NOTE | 2017-04-12 13:52 | RADRPT ---
Echocardiogram Report Patient Name: MAU WALLS Gender: Male Date: 1930 Study Date: 12-Apr-2017 Escalator Constructor: Fred Hameed [facility] Location: 514 Ref. Physician: ROBERT DOZIER Quality: Adequate Procedures: Transthoracic echocardiogram with complete 2D, M-Mode, and doppler examination. Indications: Congestive Heart Failure. Shortness of breath. 2D/M Mode Doppler Measurement Value Normal Ranges Measurement Value Normal Ranges LVIDd 2D 3.9 3.5 - 5.6 cm AV Peak Lenny 1.3 m/sec LVIDs 2D 3.1 2.1 - 4.1 cm AV Peak PG 7.0 mmHg FS 2D 18.9 % LVOT Peak Lenny 0.8 m/sec LVPWd 2D 1.3 0.6 - 1.1 cm LVOT Peak PG 3.0 mmHg IVSd 2D 1.5 0.6 - 1.1 cm MV E Peak Lenny 0.4 m/sec IVS/LVPW 2D 1.1 MV A Peak Lenny 0.6 m/sec AoR Diam 2D 3.3 2.0 - 3.7 cm MV E/A 0.8 LA/Ao 2D 1 0 - 1 MV Decel Time 155 msec EDV 2D 57.5 cm3 MV E/A 0.8 ESV 2D 30.7 cm3 TR Peak Elnny 2.7 m/sec LA Dimen 2D 3.6 2.3 - 4.0 cm TR Peak PG 29.0 mmHg RVSP 32.0 mmHg Findings Left Ventricle: Normal left ventricular systolic function. Normal left ventricular cavity size. Moderate concentric left ventricular hypertrophy. Ejection fraction is visually estimated at 55 %. Tissue Doppler/Mitral Doppler indices are consistent with impaired relaxation (Stage I diastolic dysfunction). Right Ventricle: Normal right ventricular size. Normal right ventricular systolic function. Left Atrium: The left atrium is normal in size. Right Atrium: The right atrium is normal in size. Mitral Valve: Mitral valve leaflets appear mildly thickened. Mild mitral annular calcification. There is trace to mild mitral valve regurgitation. Aortic Valve: Normal appearance of the aortic valve. No significant aortic stenosis or insufficiency. Tricuspid Valve: Normal appearance of the tricuspid valve. Estimated peak PA systolic pressure 32 mmHg. There is mild tricuspid regurgitation. Pulmonic Valve: Normal pulmonic valve appearance. Pericardium: Normal pericardium with no significant pericardial effusion. Aorta: Normal aortic root. IVC: Normal size and normal respiratory collapse consistent with normal right atrial pressure. Conclusions 1.The left ventricle is normal in size and systolic function. 2.Estimated left ventricular ejection fraction of 55%. 3.Moderate concentric left ventricular hypertrophy. Grade 1 diastolic dysfunction. Electronically Signed By: Akshat Chaudhari 12-Apr-2017 13:51:42 -0700 Patient Name: MAU WALLS Study Date: 12-Apr-2017 [id number]
[2017-04-12] MEDS ORDERED: BUPIVACAINE 0.5%/EPI (SDV) 30 ML INJ INJ ONE (14:00)
[2017-04-12] MEDS ORDERED: BUPIVACAINE INJ SCH (14:30)
[2017-04-12] MEDS ORDERED: EPINEPHRINE INJ SCH (14:30)
[2017-04-12] MEDS ORDERED: BETAMET NA PHOS/AC(6 MG/ML) 5ML INJ IM SCH (15:00)
--- NOTE | 2017-04-12 16:29 | RADRPT ---
PROCEDURE: XR Left Knee. CLINICAL INDICATION: Left knee pain. Postop. TECHNIQUE: Two views. Frontal and lateral. COMPARISON: 04/12/2017. FINDINGS: There is no fracture or dislocation. The soft tissues are normal. There is diffuse osteopenia. Vascular calcifications are present consis tent with atherosclerosis. 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 There is no lytic or blastic lesion. IMPRESSION: 1. Satisfactory postoperative appearance of the left knee. 2. Diffuse osteopenia. 3. Atherosclerosis. RPTAT: QQ .Rohan Townsend MD, MD Date Time Electronically viewed and signed by .Rohan Townsend MD, MD on 04/12/2017 16:28 .R/
[2017-04-12] MEDS ORDERED: SOD CHLORIDE 0.9% 250 ML IV ONE (16:30)
--- NOTE | 2017-04-12 16:33 | RADRPT ---
PROCEDURE: Pelvic ultrasound. CLINICAL INDICATION: Enlarged prostate. TECHNIQUE: Transabdominal ultrasound of the prostate and urinary bladder was performed in the axia l and sagittal planes. COMPARISON: There is no prior study available for comparison. FINDINGS: The prostate volume is 6 cc. The pre void volume of the bladder is 53 milliliter and the postvoid v olume of the bladder is 25 ml. There is no pelvic mass or free fluid. IMPRESSION: 1. Normal size of the prostate. RPTAT: QQ .Rohan Townsend MD, MD Date Time Electronically viewed and signed by .Rohan oTwnsend MD, MD on 04/12/2017 16:33 .R/
--- NOTE | 2017-04-12 16:33 | RADRPT ---
PROCEDURE: Pelvic ultrasound. CLINICAL INDICATION: Enlarged prostate. TECHNIQUE: Transabdominal ultrasound of the prostate and urinary bladder was performed in the axia l and sagittal planes. COMPARISON: There is no prior study available for comparison. FINDINGS: The prostate volume is 6 cc. The pre void volume of the bladder is 53 milliliter and the postvoid v olume of the bladder is 25 ml. There is no pelvic mass or free fluid. IMPRESSION: 1. Normal size of the prostate. RPTAT: QQ .Rohan Townsend MD, MD Date Time Electronically viewed and signed by .Rohan Townsend MD, MD on 04/12/2017 16:33 .R/
--- NOTE | 2017-04-12 18:37 | CONS ---
Date/Time of Note Date/Time of Note DATE: 04/12/17 TIME: 18:37 Assessment/Plan Assessment/Plan Chief Complaint/Hosp Course ANEMIA, N- CYTIC WITH N RDW WITH COMPONENET ACD IMPROVED SINCE ADMISSION, POS 2 TO IMPROVEMENT OF VOLUME STATUS COMPLETE W-UP MONITOR BLOOD COUNT CLOSELY OBSERVE FOR BLEEDING AND HEMOLYSIS NO NEEDS FOR PRBC Possible underlying idiopathic primary fibrosis CT chest today Pulmonary edema possible right heart failure Hypoxemic respiratory failure Renal insufficiency INCREASED URIC ACID ALLOPURINOL RENAL DOSE Problems: Consultation Date/Type/Reason Admit Date/Time Apr 11, 2017 at 10:58 Initial Consult Date 04/12/17 Type of Consultation: hemeon Referring Provider: MADDIE MICHAELS MD 24 HR Interval Summary Free Text/Dictation ALL NOTED NO BLEEDING NO HEMOLYSIS W-UP IN PROGRESS Exam/Review of Systems Vital Signs Vitals Vital Signs Date Time Temp Pulse Resp B/P Pulse Ox O2 Delivery O2 Flow Rate FiO2 04/12/17 18:03 18 101/49 04/12/17 17:08 98.3 70 99 04/12/17 00:00 Nasal Cannula 3.0 Intake and Output 04/11/17 04/11/17 04/12/17 15:00 23:00 07:00 Intake Total 280 ml Output Total 500 ml Balance -220 ml Exam GENERAL: Elderly [place] gentleman comfortable at rest no acute distress VITAL SIGNS: per chart NECK: Supple. No JVD or lymphadenopathy. CARDIAC EXAM: S1, S2. No added sounds or murmurs. CHEST: Coarse bibasilar rales ABDOMEN: Soft, nontender. No guarding or rebound. EXTREMITIES: No cyanosis, clubbing or edema. NEUROLOGIC: Generalized weakness. No focal deficits. Results Result Diagram: 04/12/17 0704/12/17 07 Results 24 hrs Laboratory Tests Test 04/11/17 19:21 04/11/17 20:45 04/12/17 00:55 04/12/17 07:26 Magnesium Level 1.8 Creatine Kinase 24 21 L Creatine Kinase Index 9.5 9.3 Creatinine Kinase MB (Mass) 2.27 1.96 Troponin I < 0.012 0.019 Erythrocyte Sedimentation Rate 110 H Absolute Reticulocyte Count 0.053 Percent Reticulocyte Count 1.6 H Uric Acid 10.0 H Ferritin 256.0 Lactate Dehydrogenase 511 Carcinoembryonic Antigen 3.7 Vitamin B12 Level 841 Folate > 20.0 H Thyroid Stimulating Hormone (TSH) 5.890 H 6.320 H White Blood Count 9.8 Red Blood Count 3.49 #L Hemoglobin 10.0 #L Hematocrit 33.4 #L Mean Corpuscular Volume 95.7 Mean Corpuscular Hemoglobin 28.7 L Mean Corpuscular Hemoglobin Concent 29.9 L Red Cell Distribution Width 14.5 Platelet Count 390 Mean Platelet Volume 10.0 Neutrophils % 51.1 Lymphocytes % 31.2 Monocytes % 7.2 Eosinophils % 9.5 H Basophils % 0.4 Nucleated Red Blood Cells % 0.0 Neutrophils # 5.0 Lymphocytes # 3.1 H Monocytes # 0.7 Eosinophils # 0.9 H Basophils # 0.0 Nucleated Red Blood Cells # 0.0 Sodium Level 145 H Potassium Level 4.2 Chloride Level 106 Carbon Dioxide Level 32 H Anion Gap 11 Blood Urea Nitrogen 28 H Creatinine 1.77 H Glucose Level 109 Calcium Level 9.7 Total Bilirubin 0.2 Direct Bilirubin 0.00 Indirect Bilirubin 0.2 Aspartate Amino Transf (AST/SGOT) 31 Alanine Aminotransferase (ALT/SGPT) 23 Alkaline Phosphatase 99 Total Protein 8.1 Albumin 3.4 Globulin 4.70 H Albumin/Globulin Ratio 0.72 Medications Medications Current Medications Influenza Virus Vaccine (Fluzone) 0.5 ml ONCE ONCE IM* ; Start 04/13/17 at 09: 00; Stop 04/13/17 at 09:01 Enalapril Maleate (Vasotec) 2.5 mg DAILY PO Last administered on 04/12/17 09: 11; Admin Dose 2.5 MG; Start 04/11/17 at 20:00 Pantoprazole (Protonix Tab) 40 mg DAILY@06 PO Last administered on 04/12/17 06:05; Admin Dose 40 MG; Start 04/12/17 at 06:00 Potassium Chloride 8 meq 8 meq DAILY PO Last administered on 04/12/17 09:10; Admin Dose 8 MEQ; Start 04/11/17 at 20:00 Ferric Sodium Gluconate Complex/ Sodium Chloride (Ferrlecit/NS) 110 ml @ 110 mls/hr Q24H IVPB Last administered on 04/11/17 21:43; Admin Dose 110 MLS/HR; Start 04/11/17 at 21:00; Stop 04/15/17 at 21:59 Folic Acid (Folic Acid) 1 mg DAILY GTB Last administered on 04/11/17 21:43; Admin Dose 1 MG; Start 04/11/17 at 20:00 Carvedilol 3.125 mg 3.125 mg BID PO Last administered on 04/12/17 09:11; Admin Dose 3.125 MG; Start 04/12/17 at 09:30 Magnesium Sulfate (Magnesium Sulfate 2 Gm/50 ml) 50 ml @ 25 mls/hr DAILY IVPB Last administered on 04/12/17 10:19; Admin Dose 25 MLS/HR; Start 04/12/17 at 10:00; Stop 04/13/17 at 09:00 Levothyroxine Sodium (Synthroid) 75 mcg DAILY@06 PO ; Start 04/13/17 at 06:00 IRASEMA ARAMBULA MD Apr 12, 2017 18:37
[2017-04-12] MEDS: SOD FERRIC GLUC COMPLX 125 MG in SOD CHLORIDE 0.9% 100 ML IVPB SCH (20:56)
[2017-04-13] VITALS (11 sets, daily range): BP systolic 83–112; BP diastolic 47–54; PULSE 69–70; RESP 18–20
[2017-04-13] MEDS: LEVOTHYROXINE 75 MCG TAB PO SCH (06:20)
[2017-04-13] MEDS: FUROSEMIDE 20 MG INJ IV SCH (06:20)
[2017-04-13] MEDS: PANTOPRAZOLE (EC) 40 MG TAB PO SCH (06:20)
[2017-04-13] MEDS: ENALAPRIL 2.5 MG TAB PO SCH (08:42)
[2017-04-13] MEDS: FOLIC ACID 1 MG TAB GTB SCH (08:46)
[2017-04-13] MEDS: POTASSIUM CHLORIDE (SR) 8 MEQ CAP PO SCH (08:53)
[2017-04-13] MEDS: MAGNESIUM SULFATE 2 GM/50 ML 50 ML IVPB SCH (08:53)
--- NOTE | 2017-04-13 08:59 | CONS ---
Date/Time of Note Date/Time of Note DATE: 04/13/17 TIME: 08:56 Assessment/Plan Assessment/Plan Chief Complaint/Hosp Course Dyspnea: He is currently euvolemic to dry by exam but has persistent crackles. 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 CT chest is pending Acute on chronic diastolic heart failure: EF preserved. Euvolemic to dry by exam. Dual chamber PPM: 100% paced RA: ?contributing to above -hold lasix -coreg 3.125mg BID with holding parameters -high resolution chest CT to eval for ILD Problems: Consultation Date/Type/Reason Admit Date/Time Apr 11, 2017 at 10:58 Initial Consult Date 04/12/17 Type of Consultation: Cardiology Referring Provider: MADDIE MICHAELS MD 24 HR Interval Summary Free Text/Dictation Hypotensive in the 70s twice last night. Pt's main complaint is lack of appetite. Otherwise no orthopnea or SOB while resting. Exam/Review of Systems Vital Signs Vitals Vital Signs Date Time Temp Pulse Resp B/P Pulse Ox O2 Delivery O2 Flow Rate FiO2 04/13/17 08:46 69 04/13/17 06:54 97.8 18 98/53 98 04/12/17 21:40 Nasal Cannula 2.0 Intake and Output 04/12/17 04/12/17 04/13/17 15:00 23:00 07:00 Intake Total 1260 ml 200 ml Output Total 1200 ml 400 ml Balance 60 ml -200 ml Exam Constitutional: alert, oriented Psych: nl mood/affect, no complaints Head: atraumatic, normocephalic Neck: No jvd Respiratory: clear to auscultation (crackles throughout ), crackles/rales Cardiovascular: regular rate and rhythm, systolic murmur (2/6 GOLDEN), No edema 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: nl mental status, nl speech Results Result Diagram: 04/13/17 0746 04/12/17 0726 Results 24 hrs Laboratory Tests Test 04/12/17 19:11 04/13/17 07:46 Immunoglobulin A 482 H Immunoglobulin G 1608 H Immunoglobulin M 78 White Blood Count 9.3 Red Blood Count 3.21 L Hemoglobin 9.5 L Hematocrit 31.2 L Mean Corpuscular Volume 97.2 Mean Corpuscular Hemoglobin 29.6 Mean Corpuscular Hemoglobin Concent 30.4 L Red Cell Distribution Width 14.4 Platelet Count 345 Mean Platelet Volume 9.9 Neutrophils % 53.3 Lymphocytes % 27.5 Monocytes % 7.7 Eosinophils % 10.2 H Basophils % 0.3 Nucleated Red Blood Cells % 0.0 Neutrophils # 5.0 Lymphocytes # 2.6 Monocytes # 0.7 Eosinophils # 1.0 H Basophils # 0.0 Nucleated Red Blood Cells # 0.0 Medications Medications Current Medications Influenza Virus Vaccine (Fluzone) 0.5 ml ONCE ONCE IM* ; Start 04/13/17 at 09: 00; Stop 04/13/17 at 09:01 Enalapril Maleate (Vasotec) 2.5 mg DAILY PO Last administered on 04/12/17 09: 11; Admin Dose 2.5 MG; Start 04/11/17 at 20:00 Pantoprazole (Protonix Tab) 40 mg DAILY@06 PO Last administered on 04/13/17 06:20; Admin Dose 40 MG; Start 04/12/17 at 06:00 Potassium Chloride 8 meq 8 meq DAILY PO Last administered on 04/13/17 08:53; Admin Dose 8 MEQ; Start 04/11/17 at 20:00 Ferric Sodium Gluconate Complex/ Sodium Chloride (Ferrlecit/NS) 110 ml @ 110 mls/hr Q24H IVPB Last administered on 04/12/17 20:56; Admin Dose 110 MLS/HR; Start 04/11/17 at 21:00; Stop 04/15/17 at 21:59 Folic Acid (Folic Acid) 1 mg DAILY GTB Last administered on 04/11/17 21:43; Admin Dose 1 MG; Start 04/11/17 at 20:00 Carvedilol 3.125 mg 3.125 mg BID PO Last administered on 04/12/17 09:11; Admin Dose 3.125 MG; Start 04/12/17 at 09:30 Magnesium Sulfate (Magnesium Sulfate 2 Gm/50 ml) 50 ml @ 25 mls/hr DAILY IVPB Last administered on 04/13/17 08:53; Admin Dose 25 MLS/HR; Start 04/12/17 at 10:00; Stop 04/13/17 at 09:00 Levothyroxine Sodium (Synthroid) 75 mcg DAILY@06 PO Last administered on 06:20; Admin Dose 75 MCG; Start 04/13/17 at 06:00 ROBERT DOZIER Apr 13, 2017 08:59
[2017-04-13] MEDS ORDERED: INFLUENZA VIRUS VACCINE 0.5 ML SYG IM* ONE (09:00)
--- NOTE | 2017-04-13 09:19 | PN ---
Date/Time of Note Date/Time of Note DATE: 04/13/17 TIME: 09:12 Assessment/Plan VTE Prophylaxis VTE Prophylaxis Intervention: ambulation, anti-embolic stocking VTE Contraindication Reason: peripheral vascular disease Lines/Catheters IV Catheter Type (from Nrsg): [place] [employer] line still needed: No Urinary Cath still in place: No Reason Cath still needed: urinary retention Assessment/Plan Assessment/Plan 1.CHF systolic on diastolic- iproving 2.Pulmonary edema- resolved 3.Rheumatoid arthritis with severe deformity of the right hand more prominent than the left. 4. History of anemia with recent more drop of h&h. 5. History of ischemic heart disease, angina, status post myocardial infarction. 6. History of irregular heart beat and ICD versus pacemaker implantation. 7. Dyslipidemia. 8. Hypothyroidism. 9. Pain syndrome. 10. Unstable gait. 11. Major depression. 12. Hearing impairment. 13. Memory impairment. 14. Posttraumatic stress disorder. His son from complications of malignant melanoma. Family is very supportive. 15.Status post fracture of the right shoulder, status post open reduction internal fixation. 16. Status post fracture and reduction of the left knee, status post knee replacement along with revision and change of prosthesis most probably. 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 Now creat 1.77; elevated. Subjective 24 Hr Interval Summary Free Text/Dictation sob improved significantly. Still I can't move. Constitutional: poor po, requiring O2, No chills, No diaphoresis, No disoriented, No febrile, No improved, No no complaints, No other, No requiring IVF Eyes: visual change, No discharge, No no complaints, No other, No pain, No redness ENT: other (hearing impairment.), No bleeding, No congestion, No discharge, No dysphagia, No no complaints, No pain, No sore throat Respiratory: cough, pleuritic pain Cardiovascular: lightheadedness, paroxysmal nocturnal dyspnea (improved.), No chest pain, No edema, No no complaints, No orthopenea, No other, No palpitations Gastrointestinal: nausea, passing stool, No blood, No constipation, No decreased appetite, No diarrhea, No flatus, No no complaints, No other, No pain, No vomiting Neurologic: dizziness, No confusion, No focal-weakness, No headache, No no complaints, No other, No seizure, No syncope Exam/Review of Systems Vital Signs Vitals Vital Signs Date Time Temp Pulse Resp B/P Pulse Ox O2 Delivery O2 Flow Rate FiO2 04/13/17 08:46 69 04/13/17 06:54 97.8 18 98/53 98 04/12/17 21:40 Nasal Cannula 2.0 Intake and Output 04/12/17 04/12/17 04/13/17 15:00 23:00 07:00 Intake Total 1260 ml 200 ml Output Total 1200 ml 400 ml Balance 60 ml -200 ml Exam Constitutional: alert, frail, oriented, No distress, No non-verbal, No obese, No other, No well developed Psych: anxiety, depression, nl mood/affect, No confusion, No no complaints, No other, No suicidal Head: atraumatic, normocephalic, No hematomas, No lacerations, No other Eyes: EOMI, PERRL (no change in left eye picture.), nl lids, No fundi, disc, No icteric, No nl conjunctiva, No nl sclera, No other Neck: bruits, jvd (no.), nuchal rigidity, No masses, No non-tender, No other, No supple, No thyromegaly Respiratory: crackles/rales (less intense.), diminished breath sounds, No clear to auscultation, No congested cough, No intercostal retraction, No labored breathing, No normal air movement, No other, No respirations, No tactile fremitus, No wheezing Cardiovascular: bruits, No S3, No S4, No diastolic murmur, No edema, No gallop, No irregular rhythm, No jugular venous distention (JVD), No murmurs/extra sounds, No nl pulses, No other, No regular rate and rhythm, No rub, No systolic murmur Gastrointestinal: nl liver, spleen, non-tender, soft, No ascites, No bowel sounds, No distended, No firm, No hepatomegaly, No mass , No other, No rebound or guarding, No splenomegaly, No surgical scars, No tender Genitourinary - Male: nl penis, nl scrotum, No CVA tenderness, No discharge, No other Musculoskeletal: joint tenderness (advansed ra changes.), muscle tone, muscle weakness, range of motion Extremities: calf tenderness, No clubbing, No cyanosis, No edema, No normal pulses, No other, No palpable cord, No pitting pedal edema, No tenderness 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: 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, numbness Results Result Diagram: 04/13/17 0746 04/12/17 0726 Results 24 hrs Laboratory Tests Test 04/12/17 19:11 04/13/17 07:46 Immunoglobulin A 482 H Immunoglobulin G 1608 H Immunoglobulin M 78 White Blood Count 9.3 Red Blood Count 3.21 L Hemoglobin 9.5 L Hematocrit 31.2 L Mean Corpuscular Volume 97.2 Mean Corpuscular Hemoglobin 29.6 Mean Corpuscular Hemoglobin Concent 30.4 L Red Cell Distribution Width 14.4 Platelet Count 345 Mean Platelet Volume 9.9 Neutrophils % 53.3 Lymphocytes % 27.5 Monocytes % 7.7 Eosinophils % 10.2 H Basophils % 0.3 Nucleated Red Blood Cells % 0.0 Neutrophils # 5.0 Lymphocytes # 2.6 Monocytes # 0.7 Eosinophils # 1.0 H Basophils # 0.0 Nucleated Red Blood Cells # 0.0 Medications Medications Current Medications Enalapril Maleate (Vasotec) 2.5 mg DAILY PO Last administered on 04/12/17 09: 11; Admin Dose 2.5 MG; Start 04/11/17 at 20:00 Pantoprazole (Protonix Tab) 40 mg DAILY@06 PO Last administered on 04/13/17 06:20; Admin Dose 40 MG; Start 04/12/17 at 06:00 Potassium Chloride 8 meq 8 meq DAILY PO Last administered on 04/13/17 08:53; Admin Dose 8 MEQ; Start 04/11/17 at 20:00 Ferric Sodium Gluconate Complex/ Sodium Chloride (Ferrlecit/NS) 110 ml @ 110 mls/hr Q24H IVPB Last administered on 04/12/17 20:56; Admin Dose 110 MLS/HR; Start 04/11/17 at 21:00; Stop 04/15/17 at 21:59 Folic Acid (Folic Acid) 1 mg DAILY GTB Last administered on 04/11/17 21:43; Admin Dose 1 MG; Start 04/11/17 at 20:00 Carvedilol (Coreg) 3.125 mg BID PO Last administered on 04/12/17 09:11; Admin Dose 3.125 MG; Start 04/12/17 at 09:30 Levothyroxine Sodium (Synthroid) 75 mcg DAILY@06 PO Last administered on 06:20; Admin Dose 75 MCG; Start 04/13/17 at 06:00 MADDIE MICHAELS MD Apr 13, 2017 09:18
--- NOTE | 2017-04-13 11:31 | CONS ---
Date/Time of Note Date/Time of Note DATE: 04/13/17 TIME: 11:30 Consult Date/Type/Reason Admit Date/Time Apr 11, 2017 at 10:58 Initial Consult Date 04/12/17 Type of Consultation: Pulmonary Ordering Provider: MADDIE MICHAELS MD Subjective Patient comfortable this morning. No new events. Objective Vital Signs Date Time Temp Pulse Resp B/P Pulse Ox O2 Delivery O2 Flow Rate FiO2 04/13/17 08:46 69 04/13/17 06:54 97.8 18 98/53 98 04/12/17 21:40 Nasal Cannula 2.0 Intake and Output 04/12/17 04/12/17 04/13/17 14:59 22:59 06:59 Intake Total 1260 ml 200 ml Output Total 1200 ml 400 ml Balance 60 ml -200 ml Exam GENERAL: Elderly [place] gentleman comfortable at rest no acute distress VITAL SIGNS: per chart NECK: Supple. No JVD or lymphadenopathy. CARDIAC EXAM: S1, S2. No added sounds or murmurs. CHEST: Coarse bibasilar rales ABDOMEN: Soft, nontender. No guarding or rebound. EXTREMITIES: No cyanosis, clubbing or edema. NEUROLOGIC: Generalized weakness. No focal deficits. Results/Medications Result Diagram: 04/13/17 0746 04/13/17 0746 Results 24 hrs Laboratory Tests Test 04/12/17 19:11 04/13/17 07:46 Immunoglobulin A 482 H Immunoglobulin G 1608 H Immunoglobulin M 78 White Blood Count 9.3 Red Blood Count 3.21 L Hemoglobin 9.5 L Hematocrit 31.2 L Mean Corpuscular Volume 97.2 Mean Corpuscular Hemoglobin 29.6 Mean Corpuscular Hemoglobin Concent 30.4 L Red Cell Distribution Width 14.4 Platelet Count 345 Mean Platelet Volume 9.9 Neutrophils % 53.3 Lymphocytes % 27.5 Monocytes % 7.7 Eosinophils % 10.2 H Basophils % 0.3 Nucleated Red Blood Cells % 0.0 Neutrophils # 5.0 Lymphocytes # 2.6 Monocytes # 0.7 Eosinophils # 1.0 H Basophils # 0.0 Nucleated Red Blood Cells # 0.0 Sodium Level 140 Potassium Level 4.6 Chloride Level 102 Carbon Dioxide Level 28 Anion Gap 15 Blood Urea Nitrogen 36 H Creatinine 2.67 H Glucose Level 106 Calcium Level 9.0 Medications Current Medications Enalapril Maleate (Vasotec) 2.5 mg DAILY PO Last administered on 04/12/17 09: 11; Admin Dose 2.5 MG; Start 04/11/17 at 20:00 Pantoprazole (Protonix Tab) 40 mg DAILY@06 PO Last administered on 04/13/17 06:20; Admin Dose 40 MG; Start 04/12/17 at 06:00 Potassium Chloride 8 meq 8 meq DAILY PO Last administered on 04/13/17 08:53; Admin Dose 8 MEQ; Start 04/11/17 at 20:00 Ferric Sodium Gluconate Complex/ Sodium Chloride (Ferrlecit/NS) 110 ml @ 110 mls/hr Q24H IVPB Last administered on 04/12/17 20:56; Admin Dose 110 MLS/HR; Start 04/11/17 at 21:00; Stop 04/15/17 at 21:59 Folic Acid (Folic Acid) 1 mg DAILY GTB Last administered on 04/11/17 21:43; Admin Dose 1 MG; Start 04/11/17 at 20:00 Carvedilol (Coreg) 3.125 mg BID PO Last administered on 04/12/17 09:11; Admin Dose 3.125 MG; Start 04/12/17 at 09:30 Levothyroxine Sodium (Synthroid) 75 mcg DAILY@06 PO Last administered on 06:20; Admin Dose 75 MCG; Start 04/13/17 at 06:00 Assessment/Plan Chief Complaint/Hosp Course Assessment 1. 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 Pulmonary edema possible right heart failure 2. Hypoxemic respiratory failure 4. Renal insufficiency Plan 1. Pending CT chest today . Cardiac recommendations continue diuresis if tolerated 2. Bronchodilator therapy 4. Aspiration precautions Problems: [facility] BLAND [facility] Apr 13, 2017 11:31
--- NOTE | 2017-04-13 12:19 | CONS ---
Date/Time of Note Date/Time of Note DATE: 04/13/17 TIME: 12:19 Assessment/Plan Assessment/Plan Chief Complaint/Hosp Course ANEMIA, N- CYTIC WITH N RDW WITH COMPONENET ACD IMPROVED SINCE ADMISSION, POS 2 TO IMPROVEMENT OF VOLUME STATUS COMPLETE W-UP MONITOR BLOOD COUNT CLOSELY OBSERVE FOR BLEEDING AND HEMOLYSIS NO NEEDS FOR PRBC Possible underlying idiopathic primary fibrosis CT chest today Pulmonary edema possible right heart failure Hypoxemic respiratory failure Renal insufficiency INCREASED URIC ACID ALLOPURINOL RENAL DOSE Problems: Consultation Date/Type/Reason Admit Date/Time Apr 11, 2017 at 10:58 Initial Consult Date 04/12/17 Type of Consultation: hemeon Referring Provider: MADDIE MICHAELS MD 24 HR Interval Summary Free Text/Dictation all noted no new events count improved no PRBC given no bleeding w-up in progress Exam/Review of Systems Vital Signs Vitals Vital Signs Date Time Temp Pulse Resp B/P Pulse Ox O2 Delivery O2 Flow Rate FiO2 04/13/17 11:45 98.5 70 18 83/47 98 04/12/17 21:40 Nasal Cannula 2.0 Intake and Output 04/12/17 04/12/17 04/13/17 15:00 23:00 07:00 Intake Total 1260 ml 200 ml Output Total 1200 ml 400 ml Balance 60 ml -200 ml Exam GENERAL: Elderly [place]bourgish gentleman comfortable at rest no acute distress VITAL SIGNS: per chart NECK: Supple. No JVD or lymphadenopathy. CARDIAC EXAM: S1, S2. No added sounds or murmurs. CHEST: Coarse bibasilar rales ABDOMEN: Soft, nontender. No guarding or rebound. EXTREMITIES: No cyanosis, clubbing or edema. NEUROLOGIC: Generalized weakness. No focal deficits. Results Result Diagram: 04/13/17 0746 04/13/17 0746 Results 24 hrs Laboratory Tests Test 04/12/17 19:11 04/13/17 07:46 Immunoglobulin A 482 H Immunoglobulin G 1608 H Immunoglobulin M 78 White Blood Count 9.3 Red Blood Count 3.21 L Hemoglobin 9.5 L Hematocrit 31.2 L Mean Corpuscular Volume 97.2 Mean Corpuscular Hemoglobin 29.6 Mean Corpuscular Hemoglobin Concent 30.4 L Red Cell Distribution Width 14.4 Platelet Count 345 Mean Platelet Volume 9.9 Neutrophils % 53.3 Lymphocytes % 27.5 Monocytes % 7.7 Eosinophils % 10.2 H Basophils % 0.3 Nucleated Red Blood Cells % 0.0 Neutrophils # 5.0 Lymphocytes # 2.6 Monocytes # 0.7 Eosinophils # 1.0 H Basophils # 0.0 Nucleated Red Blood Cells # 0.0 Sodium Level 140 Potassium Level 4.6 Chloride Level 102 Carbon Dioxide Level 28 Anion Gap 15 Blood Urea Nitrogen 36 H Creatinine 2.67 H Glucose Level 106 Calcium Level 9.0 Medications Medications Current Medications Enalapril Maleate (Vasotec) 2.5 mg DAILY PO Last administered on 04/12/17 09: 11; Admin Dose 2.5 MG; Start 04/11/17 at 20:00 Pantoprazole (Protonix Tab) 40 mg DAILY@06 PO Last administered on 04/13/17 06:20; Admin Dose 40 MG; Start 04/12/17 at 06:00 Potassium Chloride 8 meq 8 meq DAILY PO Last administered on 04/13/17 08:53; Admin Dose 8 MEQ; Start 04/11/17 at 20:00 Ferric Sodium Gluconate Complex/ Sodium Chloride (Ferrlecit/NS) 110 ml @ 110 mls/hr Q24H IVPB Last administered on 04/12/17 20:56; Admin Dose 110 MLS/HR; Start 04/11/17 at 21:00; Stop 04/15/17 at 21:59 Folic Acid (Folic Acid) 1 mg DAILY GTB Last administered on 04/11/17 21:43; Admin Dose 1 MG; Start 04/11/17 at 20:00 Carvedilol (Coreg) 3.125 mg BID PO Last administered on 04/12/17 09:11; Admin Dose 3.125 MG; Start 04/12/17 at 09:30 Levothyroxine Sodium (Synthroid) 75 mcg DAILY@06 PO Last administered on 06:20; Admin Dose 75 MCG; Start 04/13/17 at 06:00 IRASEMA ARAMBULA MD Apr 13, 2017 12:19
[2017-04-13] MEDS ORDERED: ALLOPURINOL 100 MG TAB PO ONE (12:30)
--- NOTE | 2017-04-13 17:58 | CONS ---
DATE OF ADMISSION: 04/11/2017 DATE OF CONSULTATION: RHEUMATOLOGY CONSULTATION HISTORY OF PRESENT ILLNESS: The patient is an 87-year-old man with a long history of rheu matoid arthritis. History obtained primarily from chart and from patient's granddaughter. The felicia ent has had multiple joint deformities and is status post various joint replacements. For the rheum atoid arthritis, he has been intermittently at least on Enbrel, but apparently not for some time unt il about 2 months ago where he was restarted on Enbrel weekly. The patient about 2 weeks ago starte d to develop shortness of breath which has increased and has been admitted with possible congestive heart failure. The patient has multiple joint deformities and left knee deformity from previous tra ann. He also according to the granddaughter has diffuse pain, but he has not had joint swellings, a t least in the last several years according to the granddaughter. According to the granddaughter, t here is no history of rashes. There is chronic fatigue. REVIEW OF SYSTEMS: CONSTITUTIONAL: Negative for abdominal pain, nausea, vomiting at present, although he may have had some in the last few weeks. No fever or chills. HEENT: Without acute oral or ocular lesions. The patient is blind in the left eye. RESPIRATORY: The patient has shortness of breath. No definite chest pain. CARDIAC: The patient has a pacemaker, but apparently pulse is regular at present. GASTROINTESTINAL: As above. No GI bleeding. GENITOURINARY: No dysuria or hematuria. SKIN: Without rashes or psoriasis. NEUROLOGIC: No focal weakness. Denies headaches. PAST MEDICAL HISTORY: Positive for: 1. Rheumatoid arthritis. 2. Probable history of pulmonary fibrosis, possibly related to the rheumatoid arthritis. 3. Chronic anemia. 4. History of coronary artery disease, status post myocardial infarction. 5. Pacemaker placement. 6. Hyperlipidemia. 7. Hypothyroidism. 8. History of depression. 9. Status post right total knee replacement. 10. Status post open reduction internal fixation post-trauma to the left knee. 11. Status post cataract surgery. 12. Benign prostatic hypertrophy. 13. Renal insufficiency. 14. Possible immunosuppression on Enbrel. MEDICATIONS: Prior to admission included Enbrel 50 mg subcutaneous every Sunday. ALLERGIES: NO KNOWN ALLERGIES. SOCIAL HISTORY: The patient does not smoke or drink alcohol. FAMILY HISTORY: Positive for coronary artery disease, COPD, and hypertension. PHYSICAL EXAMINATION: GENERAL: Well-developed, thin man, somnolent at present, but alert and oriented per grand daughter. SKIN: Without acute lesions. HEENT: Without acute oral or ocular lesions. NECK: With questionable bruits. Unclear if any jugular venous distention. CHEST: Bibasilar crackles. HEART: Regular rate and rhythm at present, no gallops or murmurs at present noted. ABDOMEN: Soft without masses or tenderness. EXTREMITIES: No cyanosis or edema. MUSCULOSKELETAL EXAM: Multiple joint deformities including at the hands, wrists, ankles and feet, b ut no evidence of synovitis. Left knee with significant deformity and poor range of motion. NEUROLOGIC EXAMINATION: Nonfocal. LABORATORY STUDIES: Noted, including a hemoglobin of 9.5, hematocrit 31.2, white count 9.3, platele t count 345. Sedimentation rate 110, creatinine of 2.67, BUN 36. LDH 111. Globulin 4.7. TSH 6.3. ASSESSMENT: 1. Rheumatoid arthritis. It is unclear to me at this point how active the rheumatoid arthritis is as there is no evidence of synovitis at this point and the granddaughter denies that he has had join t swellings in the last few years. 2. Pulmonary fibrosis, apparently chronic, unclear if this is worse at present. 3. Probable congestive heart failure. 4. Chronic anemia. 5. Renal insufficiency, in part may be prerenal, has increased with diuresis. 6. Hypothyroidism with mildly elevated TSH at present. 7. Hypertension history. RECOMMENDATIONS: 1. Continue evaluation for pulmonary fibrosis. Chest CT scan pending. 2. Would hold off additional Enbrel or other TNF medication at this point as that can exacerbate co ngestive heart failure and if he indeed has congestive heart failure, possibly the recent reimplemen tation of Enbrel over the last month or two may have triggered that. Thank you for having me see the patient rheumatologically. Will follow. Dictated By: LESLIE GRECO/SABINA Conf#: [id number] DID#: [id number]
[2017-04-13] MEDS: SOD FERRIC GLUC COMPLX 125 MG in SOD CHLORIDE 0.9% 100 ML IVPB SCH (20:11)
[2017-04-14] VITALS (13 sets, daily range): BP systolic 87–113; BP diastolic 44–63; PULSE 69–80; RESP 16–18
--- NOTE | 2017-04-14 04:18 | CONS ---
DATE OF ADMISSION: 04/11/2017 DATE OF CONSULTATION: ORTHOPEDIC CONSULTATION CONSULTATION FROM: Dr. Sky. CHIEF COMPLAINT: Left knee pain. HISTORY OF PRESENT ILLNESS: The patient is an 87-year-old male with a history of left knee pain due to medical comorbidities including heart failure and pulmonary disease. The family indicates that patient has been under the care of orthopedic surgeon, Dr. River in [place] and has had 2 s urgical procedures on the knee. The patient apparently was told that the implant is loose and may e ventually require revision. The patient is currently ambulatory with a walker. There is no redness , swelling or discharge. The patient is not a good historian. Family indicates that patient has a followup appointment with Dr. River in the next week or so and they would like to continue to foll ow up with Dr. River who is familiar with the patient and has performed surgery. PHYSICAL EXAMINATION: GENERAL: On examination, the patient is comfortable. The left knee shows no redness. There is a h ealed incision. There is no obvious deformity. Compartments are soft. Neurovascular status intact . The patient is able to move the knee ranging from 10 to 90 degrees. X-rays showed satisfactory placement of the implant with no apparent loosening of the deformity. FINAL DIAGNOSES: Status post left knee surgery x2, status post fracture and arthroplasty. RECOMMENDATIONS: The patient has a stable condition as far as the knee is concerned at this point i n time. It would be reasonable for him to follow up with his orthopedic surgeon next week for bhargavi nued care as planned. Dictated By: KWAN MARQUEZ/SABINA Conf#: [id number] DID#: [id number]
[2017-04-14] MEDS: PANTOPRAZOLE (EC) 40 MG TAB PO SCH (06:22)
[2017-04-14] MEDS: LEVOTHYROXINE 75 MCG TAB PO SCH (06:22)
[2017-04-14] MEDS: ENALAPRIL 2.5 MG TAB PO SCH (09:00)
[2017-04-14] MEDS: POTASSIUM CHLORIDE (SR) 8 MEQ CAP PO SCH (09:01)
[2017-04-14] MEDS: FOLIC ACID 1 MG TAB GTB SCH (09:01)
--- NOTE | 2017-04-14 09:37 | PN ---
Date/Time of Note Date/Time of Note DATE: 04/14/17 TIME: 09:36 Assessment/Plan VTE Prophylaxis VTE Prophylaxis Intervention: ambulation VTE Contraindication Reason: peripheral vascular disease Lines/Catheters IV Catheter Type (from Nrsg): Peripheral IV Central line still needed: No Urinary Cath still in place: No Assessment/Plan Assessment/Plan 1.CHF systolic on diastolic- improving 2.Pulmonary edema- resolved 3.Rheumatoid arthritis with severe deformity of the right hand more prominent than the left. 4. History of anemia with recent more drop of h&h. 5. History of ischemic heart disease, angina, status post myocardial infarction. 6. History of irregular heart beat and ICD versus pacemaker implantation. 7. Dyslipidemia. 8. Hypothyroidism. 9. Pain syndrome. 10. Unstable gait. 11. Major depression. 12. Hearing impairment. 13. Memory impairment. 14. Posttraumatic stress disorder. His son from complications of malignant melanoma. Family is very supportive. 15.Status post fracture of the right shoulder, status post open reduction internal fixation. 16. Status post fracture and reduction of the left knee, status post knee replacement along with revision and change of prosthesis most probably. 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 Now creat 1.77; elevated.- cont. P.O. hydr. 23.Constipation. 24.Forgetfulness. 25.PAD Cont'd Hospitalization Reason: as above. Subjective 24 Hr Interval Summary Free Text/Dictation Weakness, fatigue. SoB improved. i had a BM. NO f/c. Constitutional: no complaints (constipation.), poor po, No chills, No diaphoresis, No disoriented, No febrile, No improved, No other , No requiring IVF, No requiring O2 Eyes: redness, No discharge, No no complaints, No other, No pain, No visual change ENT: congestion, dysphagia (on and off.), No bleeding, No discharge, No no complaints, No other, No pain, No sore throat Respiratory: No cough, No no complaints, No other, No pain, No pleuritic pain, No shortness of breath, No sputum, No wheezing Cardiovascular: chest pain, lightheadedness, orthopenea, No edema, No no complaints, No other, No palpitations, No paroxysmal nocturnal dyspnea Gastrointestinal: constipation, flatus, nausea, No blood, No decreased appetite, No diarrhea, No no complaints, No other, No pain, No passing stool, No vomiting Genitourinary: dysuria, No bleeding, No discharge, No flank pain, No hematuria, No no complaints, No other Musculoskeletal: back pain, bone/joint pain, neck pain, No no complaints, No other, No restricted range of motion, No swelling Skin: pruritis, No bruising, No erythema, No laceration, No no complaints, No other, No rash , No skin lesions Neurologic: dizziness, headache, No confusion, No focal-weakness, No no complaints, No other, No seizure, No syncope Endocrine: dry skin, No no complaints, No other, No polydypsia, No polyuria, No temp intolerance Psychological: anxiety, depression, No confusion, No nl mood/affect, No no complaints, No other, No suicidal Exam/Review of Systems Vital Signs Vitals Vital Signs Date Time Temp Pulse Resp B/P Pulse Ox O2 Delivery O2 Flow Rate FiO2 04/14/17 08:21 69 04/14/17 07:55 99.0 18 99/49 99 04/13/17 20:10 Nasal Cannula 2.0 Intake and Output 04/13/17 04/13/17 04/14/17 15:00 23:00 07:00 Intake Total 500 ml 250 ml Balance 500 ml 250 ml Exam Constitutional: alert, distress, frail, oriented, No non-verbal, No obese, No other, No well developed Psych: anxiety, depression, nl mood/affect, No confusion, No no complaints, No other, No suicidal Head: atraumatic, normocephalic, No hematomas, No lacerations, No other Eyes: EOMI, PERRL (left lid is more swollenm than right one.) ENMT: nl lips & teeth, tympanic membranes (sclerotic.) Neck: bruits, jvd, non-tender, nuchal rigidity Respiratory: congested cough Cardiovascular: bruits, murmurs/extra sounds, regular rate and rhythm, systolic murmur Gastrointestinal: bowel sounds (deminished.), nl liver, spleen, non-tender, soft Genitourinary - Male: nl penis, nl scrotum, No CVA tenderness, No discharge, No other Musculoskeletal: joint tenderness, muscle tone, muscle weakness, range of motion, No nl extremities to inspection, No nl gait and stance, No other, No spine non-tender, No swelling 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: [employer] ASSESSMENT SPECIALIST II-XII intact, focal weakness, nl mental status (forgetful.) , numbness Skin: nl turgor (decreased.), rash or lesions, No diaphoresis, No ecchymosis, No laceration, No other, No puncture Lymph: No enlarged, No nl lymph nodes, No nontender, No other Results Result Diagram: 04/14/1735 04/14/1734 Results 24 hrs Laboratory Tests Test 04/14/17 06:34 04/14/17 06:35 Sodium Level 141 Potassium Level 4.7 Chloride Level 103 Carbon Dioxide Level 28 Anion Gap 15 Blood Urea Nitrogen 37 H Creatinine 2.28 H Glucose Level 102 Calcium Level 9.4 C-Reactive Protein 3.7 H White Blood Count 10.7 Red Blood Count 3.04 L Hemoglobin 8.8 L Hematocrit 29.7 L Mean Corpuscular Volume 97.7 Mean Corpuscular Hemoglobin 28.9 L Mean Corpuscular Hemoglobin Concent 29.6 L Red Cell Distribution Width 14.6 H Platelet Count 386 Mean Platelet Volume 10.1 Neutrophils % 53.6 Lymphocytes % 28.2 Monocytes % 8.3 Eosinophils % 8.7 H Basophils % 0.4 Nucleated Red Blood Cells % 0.0 Neutrophils # 5.8 Lymphocytes # 3.0 H Monocytes # 0.9 Eosinophils # 0.9 H Basophils # 0.0 Nucleated Red Blood Cells # 0.0 Medications Medications Current Medications Enalapril Maleate (Vasotec) 2.5 mg DAILY PO Last administered on 04/12/17 09: 11; Admin Dose 2.5 MG; Start 04/11/17 at 20:00 Pantoprazole (Protonix Tab) 40 mg DAILY@06 PO Last administered on 04/14/17 06:22; Admin Dose 40 MG; Start 04/12/17 at 06:00 Potassium Chloride 8 meq 8 meq DAILY PO Last administered on 04/14/17 09:01; Admin Dose 8 MEQ; Start 04/11/17 at 20:00 Ferric Sodium Gluconate Complex/ Sodium Chloride (Ferrlecit/NS) 110 ml @ 110 mls/hr Q24H IVPB Last administered on 04/13/17 20:11; Admin Dose 110 MLS/HR; Start 04/11/17 at 21:00; Stop 04/15/17 at 21:59 Folic Acid (Folic Acid) 1 mg DAILY GTB Last administered on 04/14/17 09:01; Admin Dose 1 MG; Start 04/11/17 at 20:00 Carvedilol (Coreg) 3.125 mg BID PO Last administered on 04/12/17 09:11; Admin Dose 3.125 MG; Start 04/12/17 at 09:30 Levothyroxine Sodium (Synthroid) 75 mcg DAILY@06 PO Last administered on 06:22; Admin Dose 75 MCG; Start 04/13/17 at 06:00 MADDIE MICHAELS MD Apr 14, 2017 09:37
--- NOTE | 2017-04-14 10:20 | RADRPT ---
PROCEDURE: CT Chest without contrast (high resolution). CLINICAL INDICATION: Dyspnea. Rule out pulmonary fibrosis. TECHNIQUE: High-resolution CT scan of the chest without contrast was performed on a high-Blossomutio n multidetector CT scanner. The patient was scanned without intravenous contrast. Coronal and sagi ttal reformatted images were obtained from the axial source images. Patient was examined during bot h deep inspiration and full expiration. Images were reviewed on a high resolution PACS workstation. The total exam CTDI equals 10.82 mGy and the total exam DLP equals 414.72 mGy-cm. One or more of the following dose reduction techniques were used: - Automated exposure control. - Adjustment of the mA and/or kV according to patient size. - Use of iterative reconstruction technique. COMPARISON: Chest x-ray 04/11/2017; CT scan chest 08/08/2013 FINDINGS: Extensive diffuse pulmonary fibrosis is seen scattered throughout the periphery of the lungs. This i s advanced in degree. Subtle mild early developing honeycombing pattern is seen at the lung bases. Mild traction bronchiectasis and bronchiolectasis is seen scattered throughout the lungs as well. No acute infiltrate or mass lesion or pleural effusion is seen. The central tracheobronchial tree i s clear. The mediastinum is unremarkable without evidence for mass or lymphadenopathy. Abundant small shoddy reactive mediastinal lymph nodes are seen, grossly stable over time. The vascular structures of the mediastinum are normal in course and caliber. Aortic vascular calcifications and coronary artery c alcifications are present. The heart size is enlarged without evidence for pericardial thickening o r effusion. Pacemaker / defibrillator wires are seen in place. The axillary regions, subpectoral regions, and supraclavicular regions are all unremarkable. Imagin g obtained through the upper abdomen reveals no acute abnormality. Gallstones are seen within the gallbladder. The surrounding osseous structures are remarkable for mild degenerative spondylosis of the spine. No osteolytic or osteoblastic lesion is detected. IMPRESSION: 1. Advanced severe pulmonary fibrosis scattered throughout the lungs. The severity of disease is si gnificantly worse when compared to the prior CT chest dated 2013. 2. 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 3. Cardiomegaly with pacemaker / defibrillator wires in place. 4. Vascular calcifications consistent with atherosclerosis. 5. Extensive scattered small shoddy reactive mediastinal lymph nodes. RPTAT: HMJB .Ronny Lynn MD, MD Date Time Electronically viewed and signed by .Ronny Lynn MD, MD on 04/14/2017 10:20 .B/
--- NOTE | 2017-04-14 12:08 | CONS ---
Date/Time of Note Date/Time of Note DATE: 04/14/17 TIME: 12:04 Consult Date/Type/Reason Admit Date/Time Apr 11, 2017 at 10:58 Initial Consult Date 04/12/17 Type of Consultation: Pulmonary Ordering Provider: MADDIE MICHAELS MD Subjective Patient somewhat improved today. Objective Vital Signs Date Time Temp Pulse Resp B/P Pulse Ox O2 Delivery O2 Flow Rate FiO2 04/14/17 08:30 Nasal Cannula 2.0 04/14/17 08:21 69 04/14/17 07:55 99.0 18 99/49 99 Intake and Output 04/13/17 04/13/17 04/14/17 15:00 23:00 07:00 Intake Total 500 ml 250 ml Balance 500 ml 250 ml Exam GENERAL: Elderly Citizen Of [place] gentleman comfortable at rest no acute distress VITAL SIGNS: per chart NECK: Supple. No JVD or lymphadenopathy. CARDIAC EXAM: S1, S2. No added sounds or murmurs. CHEST: Diminished air entry bilaterally with rales ABDOMEN: Soft, nontender. No guarding or rebound. EXTREMITIES: No cyanosis, clubbing or edema. NEUROLOGIC: Generalized weakness. No focal deficits. Results/Medications Result Diagram: 04/14/17 0635 04/14/[address] chest Traction bronchiectasis with idiopathic pulmonary fibrosis Laboratory Tests Test 04/14/17 06:34 04/14/17 06:35 Sodium Level 141 Potassium Level 4.7 Chloride Level 103 Carbon Dioxide Level 28 Anion Gap 15 Blood Urea Nitrogen 37 H Creatinine 2.28 H Glucose Level 102 Calcium Level 9.4 C-Reactive Protein 3.7 H White Blood Count 10.7 Red Blood Count 3.04 L Hemoglobin 8.8 L Hematocrit 29.7 L Mean Corpuscular Volume 97.7 Mean Corpuscular Hemoglobin 28.9 L Mean Corpuscular Hemoglobin Concent 29.6 L Red Cell Distribution Width 14.6 H Platelet Count 386 Mean Platelet Volume 10.1 Neutrophils % 53.6 Lymphocytes % 28.2 Monocytes % 8.3 Eosinophils % 8.7 H Basophils % 0.4 Nucleated Red Blood Cells % 0.0 Neutrophils # 5.8 Lymphocytes # 3.0 H Monocytes # 0.9 Eosinophils # 0.9 H Basophils # 0.0 Nucleated Red Blood Cells # 0.0 Medications Current Medications Enalapril Maleate (Vasotec) 2.5 mg DAILY PO Last administered on 04/12/17 09: 11; Admin Dose 2.5 MG; Start 04/11/17 at 20:00 Pantoprazole (Protonix Tab) 40 mg DAILY@06 PO Last administered on 04/14/17 06:22; Admin Dose 40 MG; Start 04/12/17 at 06:00 Potassium Chloride 8 meq 8 meq DAILY PO Last administered on 04/14/17 09:01; Admin Dose 8 MEQ; Start 04/11/17 at 20:00 Ferric Sodium Gluconate Complex/ Sodium Chloride (Ferrlecit/NS) 110 ml @ 110 mls/hr Q24H IVPB Last administered on 04/13/17 20:11; Admin Dose 110 MLS/HR; Start 04/11/17 at 21:00; Stop 04/15/17 at 21:59 Folic Acid (Folic Acid) 1 mg DAILY GTB Last administered on 04/14/17 09:01; Admin Dose 1 MG; Start 04/11/17 at 20:00 Carvedilol (Coreg) 3.125 mg BID PO Last administered on 04/12/17 09:11; Admin Dose 3.125 MG; Start 04/12/17 at 09:30 Levothyroxine Sodium (Synthroid) 75 mcg DAILY@06 PO Last administered on 06:22; Admin Dose 75 MCG; Start 04/13/17 at 06:00 Assessment/Plan Chief Complaint/Hosp Course Assessment 1. Traction bronchiectasis with idiopathic pulmonary fibrosis 2. Pulmonary edema possible right heart failure 2. Hypoxemic respiratory failure 4. Renal insufficiency Plan 1. CT chest noted 2.. Cardiac recommendations continue diuresis if tolerated 3. Bronchodilator therapy, low-dose steroids. 4. Aspiration precautions 5. Rheumatology evaluation in place. Problems: FEMI BLAND MD, [facility] Apr 14, 2017 12:08
--- NOTE | 2017-04-14 13:27 | CONS ---
Date/Time of Note Date/Time of Note DATE: 04/14/17 TIME: 13:27 Assessment/Plan Assessment/Plan Chief Complaint/Hosp Course ANEMIA, N- CYTIC WITH N RDW WITH COMPONENET ACD IMPROVED SINCE ADMISSION, POS 2 TO IMPROVEMENT OF VOLUME STATUS COMPLETE W-UP MONITOR BLOOD COUNT CLOSELY OBSERVE FOR BLEEDING AND HEMOLYSIS NO NEEDS FOR PRBC Possible underlying idiopathic primary fibrosis CT chest today Pulmonary edema possible right heart failure Hypoxemic respiratory failure Renal insufficiency INCREASED URIC ACID ALLOPURINOL RENAL DOSE Problems: Consultation Date/Type/Reason Admit Date/Time Apr 11, 2017 at 10:58 Initial Consult Date 04/12/17 [facility] Referring Provider: MADDIE MICHAELS MD 24 HR Interval Summary Free Text/Dictation ALL NOTED Exam/Review of Systems Vital Signs Vitals Vital Signs Date Time Temp Pulse Resp B/P Pulse Ox O2 Delivery O2 Flow Rate FiO2 04/14/17 12:32 98.0 70 18 103/56 98 04/14/17 08:30 Nasal Cannula 2.0 Intake and Output 04/13/17 04/13/17 04/14/17 15:00 23:00 07:00 Intake Total 500 ml 250 ml Balance 500 ml 250 ml Exam GENERAL: Elderly [place] gentleman comfortable at rest no acute distress VITAL SIGNS: per chart NECK: Supple. No JVD or lymphadenopathy. CARDIAC EXAM: S1, S2. No added sounds or murmurs. CHEST: Coarse bibasilar rales ABDOMEN: Soft, nontender. No guarding or rebound. EXTREMITIES: No cyanosis, clubbing or edema. NEUROLOGIC: Generalized weakness. No focal deficits. Results Result Diagram: 04/14/17 0635 04/14/17 0634 Results 24 hrs Laboratory Tests Test 04/14/17 06:34 04/14/17 06:35 Sodium Level 141 Potassium Level 4.7 Chloride Level 103 Carbon Dioxide Level 28 Anion Gap 15 Blood Urea Nitrogen 37 H Creatinine 2.28 H Glucose Level 102 Calcium Level 9.4 C-Reactive Protein 3.7 H White Blood Count 10.7 Red Blood Count 3.04 L Hemoglobin 8.8 L Hematocrit 29.7 L Mean Corpuscular Volume 97.7 Mean Corpuscular Hemoglobin 28.9 L Mean Corpuscular Hemoglobin Concent 29.6 L Red Cell Distribution Width 14.6 H Platelet Count 386 Mean Platelet Volume 10.1 Neutrophils % 53.6 Lymphocytes % 28.2 Monocytes % 8.3 Eosinophils % 8.7 H Basophils % 0.4 Nucleated Red Blood Cells % 0.0 Neutrophils # 5.8 Lymphocytes # 3.0 H Monocytes # 0.9 Eosinophils # 0.9 H Basophils # 0.0 Nucleated Red Blood Cells # 0.0 Medications Medications Current Medications Enalapril Maleate (Vasotec) 2.5 mg DAILY PO Last administered on 04/12/17 09: 11; Admin Dose 2.5 MG; Start 04/11/17 at 20:00 Pantoprazole (Protonix Tab) 40 mg DAILY@06 PO Last administered on 04/14/17 06:22; Admin Dose 40 MG; Start 04/12/17 at 06:00 Potassium Chloride 8 meq 8 meq DAILY PO Last administered on 04/14/17 09:01; Admin Dose 8 MEQ; Start 04/11/17 at 20:00 Ferric Sodium Gluconate Complex/ Sodium Chloride (Ferrlecit/NS) 110 ml @ 110 mls/hr Q24H IVPB Last administered on 04/13/17 20:11; Admin Dose 110 MLS/HR; Start 04/11/17 at 21:00; Stop 04/15/17 at 21:59 Folic Acid (Folic Acid) 1 mg DAILY GTB Last administered on 04/14/17 09:01; Admin Dose 1 MG; Start 04/11/17 at 20:00 Carvedilol (Coreg) 3.125 mg BID PO Last administered on 04/12/17 09:11; Admin Dose 3.125 MG; Start 04/12/17 at 09:30 Levothyroxine Sodium (Synthroid) 75 mcg DAILY@06 PO Last administered on 06:22; Admin Dose 75 MCG; Start 04/13/17 at 06:00 Methylprednisolone Sodium Succinate (Solu-Medrol) 40 mg Q12 IV ; Start at 12:30 IRASEMA ARAMBULA MD Apr 14, 2017 13:27
--- NOTE | 2017-04-14 13:47 | CONS ---
Date/Time of Note Date/Time of Note DATE: 04/14/17 TIME: 13:25 Consult Date/Type/Reason Admit Date/Time Apr 11, 2017 at 10:58 Initial Consult Date 04/12/17 Type of Consultation: Rheum Ordering Provider: MADDIE MICHAELS MD Subjective Feeling better today. Some persistent of chronic nausea. Has been followed By GI and recently had upper GI evaluation. Diffuse aches but no joint swelling. Objective Vital Signs Date Time Temp Pulse Resp B/P Pulse Ox O2 Delivery O2 Flow Rate FiO2 04/14/17 12:32 98.0 70 18 103/56 98 04/14/17 08:30 Nasal Cannula 2.0 Intake and Output 04/13/17 04/13/17 04/14/17 15:00 23:00 07:00 Intake Total 500 ml 250 ml Balance 500 ml 250 ml Exam GENERAL: Well-developed, thin man, somnolent at present, but alert and oriented per granddaughter. SKIN: Without acute lesions. HEENT: Without acute oral or ocular lesions. NECK: With questionable bruits. Unclear if any jugular venous distention. CHEST: Bibasilar crackles. HEART: Regular rate and rhythm at present, no gallops or murmurs at present noted. ABDOMEN: Soft without masses or tenderness. EXTREMITIES: No cyanosis or edema. MUSCULOSKELETAL EXAM: Multiple joint deformities including at the hands, wrists , ankles and feet, but no evidence of synovitis. Left knee with significant deformity and poor range of motion. NEUROLOGIC EXAMINATION: Nonfocal. Results/Medications Result Diagram: 04/14/17 0635 04/14/17 0634 Results 24 hrs Laboratory Tests Test 04/14/17 06:34 04/14/17 06:35 Sodium Level 141 Potassium Level 4.7 Chloride Level 103 Carbon Dioxide Level 28 Anion Gap 15 Blood Urea Nitrogen 37 H Creatinine 2.28 H Glucose Level 102 Calcium Level 9.4 C-Reactive Protein 3.7 H White Blood Count 10.7 Red Blood Count 3.04 L Hemoglobin 8.8 L Hematocrit 29.7 L Mean Corpuscular Volume 97.7 Mean Corpuscular Hemoglobin 28.9 L Mean Corpuscular Hemoglobin Concent 29.6 L Red Cell Distribution Width 14.6 H Platelet Count 386 Mean Platelet Volume 10.1 Neutrophils % 53.6 Lymphocytes % 28.2 Monocytes % 8.3 Eosinophils % 8.7 H Basophils % 0.4 Nucleated Red Blood Cells % 0.0 Neutrophils # 5.8 Lymphocytes # 3.0 H Monocytes # 0.9 Eosinophils # 0.9 H Basophils # 0.0 Nucleated Red Blood Cells # 0.0 Medications Current Medications Enalapril Maleate (Vasotec) 2.5 mg DAILY PO Last administered on 04/12/17 09: 11; Admin Dose 2.5 MG; Start 04/11/17 at 20:00 Pantoprazole (Protonix Tab) 40 mg DAILY@06 PO Last administered on 04/14/17 06:22; Admin Dose 40 MG; Start 04/12/17 at 06:00 Potassium Chloride 8 meq 8 meq DAILY PO Last administered on 04/14/17 09:01; Admin Dose 8 MEQ; Start 04/11/17 at 20:00 Ferric Sodium Gluconate Complex/ Sodium Chloride (Ferrlecit/NS) 110 ml @ 110 mls/hr Q24H IVPB Last administered on 04/13/17 20:11; Admin Dose 110 MLS/HR; Start 04/11/17 at 21:00; Stop 04/15/17 at 21:59 Folic Acid (Folic Acid) 1 mg DAILY GTB Last administered on 04/14/17 09:01; Admin Dose 1 MG; Start 04/11/17 at 20:00 Carvedilol (Coreg) 3.125 mg BID PO Last administered on 04/12/17 09:11; Admin Dose 3.125 MG; Start 04/12/17 at 09:30 Levothyroxine Sodium (Synthroid) 75 mcg DAILY@06 PO Last administered on 06:22; Admin Dose 75 MCG; Start 04/13/17 at 06:00 Methylprednisolone Sodium Succinate (Solu-Medrol) 40 mg Q12 IV ; Start at 12:30 Assessment/Plan Chief Complaint/Hosp Course ASSESSMENT: 1. Rheumatoid arthritis. It is unclear to me at this point how active the rheumatoid arthritis is as there is no evidence of synovitis and the granddaughter denies that he has had joint swellings in the last few years. 2. Pulmonary fibrosis, apparently chronic, unclear how rapidly increasing. 3. Probable congestive heart failure. 4. Chronic anemia. 5. Renal insufficiency, in part may be prerenal, has increased with diuresis. Improved some today. 6. Hypothyroidism with mildly elevated TSH at present. 7. Hypertension history. 8. Chronic pain, without obvious synovitis. RECOMMENDATIONS: 1. Would discontinue Enbrel or other TNF medication at this point as that can exacerbate congestive heart failure. 2. Consider changing Biologic to a different family than TNF. I discussed with grand daughter and she will discuss with his Security Team Lead. Problems: LESLIE SOTO MD Apr 14, 2017 13:35
[2017-04-14] MEDS: ALBUTEROL/IPRATROPIUM (NEB) 3 ML AMP HHN SCH ×2 (14:48→20:46)
[2017-04-14] MEDS: METHYLPREDNISOLONE 40 MG INJ IV SCH ×2 (16:31→21:17)
--- NOTE | 2017-04-14 19:26 | CONS ---
Date/Time of Note Date/Time of Note DATE: 04/14/17 TIME: 19:23 Assessment/Plan Assessment/Plan Chief Complaint/Hosp Course Dyspnea: suspect primarily due to pulmonary fibrosis Acute on chronic diastolic heart failure: euvolemic to dry by exam Dual chamber PPM: 100% paced Pulmonary fibrosis: severe on chest CT RA: ? contributing to above -hold lasix -discontinue carvedilol due to borderline blood pressures Problems: Consultation Date/Type/Reason Admit Date/Time Apr 11, 2017 at 10:58 Initial Consult Date 04/12/17 Type of Consultation: Cardiology 24 HR Interval Summary Free Text/Dictation No acute events. Overall feeling better. Shortness of breath improved. Detailed Summary Additional Comments 14 point review of systems without changes. Exam/Review of Systems Vital Signs Vitals Vital Signs Date Time Temp Pulse Resp B/P Pulse Ox O2 Delivery O2 Flow Rate FiO2 04/14/17 16:52 98.0 57 18 99/63 98 04/14/17 16:42 2.0 04/14/17 16:21 Nasal Cannula Intake and Output 04/13/17 04/13/17 04/14/17 15:00 23:00 07:00 Intake Total 500 ml 250 ml Balance 500 ml 250 ml Exam Constitutional: alert, oriented Psych: nl mood/affect, no complaints Head: atraumatic, normocephalic Neck: No jvd Respiratory: clear to auscultation (crackles throughout ), crackles/rales Cardiovascular: regular rate and rhythm, systolic murmur (2/6 GOLDEN), No edema 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: nl mental status, nl speech Results Result Diagram: 04/14/17 0635 04/14/17 0634 Results 24 hrs Laboratory Tests Test 04/14/17 06:34 04/14/17 06:35 Sodium Level 141 Potassium Level 4.7 Chloride Level 103 Carbon Dioxide Level 28 Anion Gap 15 Blood Urea Nitrogen 37 H Creatinine 2.28 H Glucose Level 102 Calcium Level 9.4 C-Reactive Protein 3.7 H White Blood Count 10.7 Red Blood Count 3.04 L Hemoglobin 8.8 L Hematocrit 29.7 L Mean Corpuscular Volume 97.7 Mean Corpuscular Hemoglobin 28.9 L Mean Corpuscular Hemoglobin Concent 29.6 L Red Cell Distribution Width 14.6 H Platelet Count 386 Mean Platelet Volume 10.1 Neutrophils % 53.6 Lymphocytes % 28.2 Monocytes % 8.3 Eosinophils % 8.7 H Basophils % 0.4 Nucleated Red Blood Cells % 0.0 Neutrophils # 5.8 Lymphocytes # 3.0 H Monocytes # 0.9 Eosinophils # 0.9 H Basophils # 0.0 Nucleated Red Blood Cells # 0.0 Medications Medications Current Medications Enalapril Maleate (Vasotec) 2.5 mg DAILY PO Last administered on 04/12/17 09: 11; Admin Dose 2.5 MG; Start 04/11/17 at 20:00 Pantoprazole (Protonix Tab) 40 mg DAILY@06 PO Last administered on 04/14/17 06:22; Admin Dose 40 MG; Start 04/12/17 at 06:00 Potassium Chloride 8 meq 8 meq DAILY PO Last administered on 04/14/17 09:01; Admin Dose 8 MEQ; Start 04/11/17 at 20:00 Ferric Sodium Gluconate Complex/ Sodium Chloride (Ferrlecit/NS) 110 ml @ 110 mls/hr Q24H IVPB Last administered on 04/13/17 20:11; Admin Dose 110 MLS/HR; Start 04/11/17 at 21:00; Stop 04/15/17 at 21:59 Folic Acid (Folic Acid) 1 mg DAILY GTB Last administered on 04/14/17 09:01; Admin Dose 1 MG; Start 04/11/17 at 20:00 Carvedilol (Coreg) 3.125 mg BID PO Last administered on 04/12/17 09:11; Admin Dose 3.125 MG; Start 04/12/17 at 09:30 Levothyroxine Sodium (Synthroid) 75 mcg DAILY@06 PO Last administered on 06:22; Admin Dose 75 MCG; Start 04/13/17 at 06:00 Methylprednisolone Sodium Succinate (Solu-Medrol) 40 mg Q12 IV Last administered on 04/14/17 16:31; Admin Dose 40 MG; Start 04/14/17 at 12:30 JULIO C SHIELDS MD Apr 14, 2017 19:25
--- NOTE | 2017-04-14 20:29 | CONS ---
DATE OF ADMISSION: 04/11/2017 DATE OF CONSULTATION: 04/14/2017 REASON FOR CONSULTATION: The patient is an 87-year-old male, who was admitted on March, when he was brought into the emergency room because of the shortness of breath. He is known to have COPD, and the shortness of breath, which started about 4 days prior to his admission. It was getting worse progressively and he was brought into the emergency room. Initial evaluation in the emergency room revealed some pulmonary edema and he was admitted. PAST MEDICAL HISTORY: Including coronary artery disease, angina, history of angina, colitis, diverticulitis, history of GI bleeding, hypertension, peptic ulcer disease, urinary tract infection, and COPD. He also has a history of degenerative joint disease involving both knees and was managed with the total knee replacement of both knees along with the revision total knee replacement of the left knee in the past. He also had a fracture involving the midshaft of the right humerus and supracondylar position of the right humerus at the right shoulder in the past and was treated with the intramedullary nailing of the humeral shaft fracture. PHYSICAL EXAMINATION: At the time of my evaluation, the family members were concerned because of his difficulty walking because of the pain and discomfort involving multiple joints. The examination of the right upper extremity revealed that he has a fair range of motion of the right shoulder with mild pain. The range of motion of the right elbow was fair with some limitation in extension, which is fairly good considering the amount of his trauma involving the right elbow. The healing of the midshaft fracture of the right humerus is complete and satisfactory with the intramedullary nail in place. There was a scar anterior midline scar over both knees from previous total knee replacement. The x-rays of the right knee revealed the presence of a total knee arthroplasty prosthesis, which is in good alignment without any signs of loosening or displacement. Range of motion of the right knee was fair without too much pain. The x-rays of the left knee revealed the evidence of revision total knee arthroplasty, again range of motion of the left knee was fair without too much pain considering the fact that he had the revision surgery. DIAGNOSTIC IMPRESSION: 1. Status post total knee replacement of the right knee, in fair condition. 2. Status post revision total knee replacement of the left knee fair except for range of motion without too much pain. 3. History of midshaft fracture and supracondylar fracture of the right humerus, status post intramedullary nailing, healed in acceptable outcome. PLAN: I do not feel that any additional surgical procedure is needed at this time. His pain involving both knees is not bad enough to consider any additional injection therapy at this time. Considering the amount of surgery he had, some degree of limit of motion and difficulty in ambulation have to be excepted especially in view of his overall condition and age. Dictated By: In Maggy Ng MD /[email or web address] /Document#: [id number]
[2017-04-14] MEDS: SOD FERRIC GLUC COMPLX 125 MG in SOD CHLORIDE 0.9% 100 ML IVPB SCH (21:17)
[2017-04-14] MEDS: POLYETHYLENE GLYCOL 17 GM PACKET PO SCH (22:36)
[2017-04-15] VITALS (12 sets, daily range): BP systolic 93–115; BP diastolic 46–54; PULSE 69; RESP 16
[2017-04-15] MEDS: LEVOTHYROXINE 75 MCG TAB PO SCH (06:29)
[2017-04-15] MEDS: PANTOPRAZOLE (EC) 40 MG TAB PO SCH (06:29)
[2017-04-15] MEDS: ALBUTEROL/IPRATROPIUM (NEB) 3 ML AMP HHN SCH ×3 (08:35→20:09)
[2017-04-15] MEDS: METHYLPREDNISOLONE 40 MG INJ IV SCH ×2 (09:19→20:16)
[2017-04-15] MEDS: POTASSIUM CHLORIDE (SR) 8 MEQ CAP PO SCH (09:19)
[2017-04-15] MEDS: POLYETHYLENE GLYCOL 17 GM PACKET PO SCH ×2 (09:20→20:15)
[2017-04-15] MEDS: FOLIC ACID 1 MG TAB GTB SCH (09:20)
--- NOTE | 2017-04-15 10:35 | CONS ---
Date/Time of Note Date/Time of Note DATE: 04/15/17 TIME: 10:34 Consult Date/Type/Reason Admit Date/Time Apr 11, 2017 at 10:58 Initial Consult Date 04/12/17 Type of Consultation: Pulmonary Subjective Patient comfortable this morning. Objective Vital Signs Date Time Temp Pulse Resp B/P Pulse Ox O2 Delivery O2 Flow Rate FiO2 04/15/17 08:12 69 04/15/17 07:51 98.0 16 112/53 97 04/14/17 21:00 Nasal Cannula 2.0 Intake and Output 04/14/17 04/14/17 04/15/17 15:00 23:00 07:00 Intake Total 810 ml 300 ml Output Total 300 ml Balance 810 ml 0 ml Exam GENERAL: Elderly Serbian gentleman comfortable at rest no acute distress VITAL SIGNS: per chart NECK: Supple. No JVD or lymphadenopathy. CARDIAC EXAM: S1, S2. No added sounds or murmurs. CHEST: Diminished air entry bilaterally with rales ABDOMEN: Soft, nontender. No guarding or rebound. EXTREMITIES: No cyanosis, clubbing or edema. NEUROLOGIC: Generalized weakness. No focal deficits. Results/Medications Result Diagram: 04/15/17 0532 04/14/17 0634 Results 24 hrs Laboratory Tests Test 04/15/17 05:32 White Blood Count 6.6 # Red Blood Count 3.05 L Hemoglobin 8.8 L Hematocrit 29.6 L Mean Corpuscular Volume 97.0 Mean Corpuscular Hemoglobin 28.9 L Mean Corpuscular Hemoglobin Concent 29.7 L Red Cell Distribution Width 14.1 Platelet Count 318 Mean Platelet Volume 10.2 Neutrophils % 84.7 H Lymphocytes % 13.4 L Monocytes % 0.8 Eosinophils % 0.0 Basophils % 0.2 Nucleated Red Blood Cells % 0.0 Neutrophils # 5.6 Lymphocytes # 0.9 Monocytes # 0.1 L Eosinophils # 0.0 Basophils # 0.0 Nucleated Red Blood Cells # 0.0 Magnesium Level 2.3 B-Type Natriuretic Peptide 403 Medications Current Medications Pantoprazole (Protonix Tab) 40 mg DAILY@06 PO Last administered on 04/15/17 06:29; Admin Dose 40 MG; Start 04/12/17 at 06:00 Potassium Chloride 8 meq 8 meq DAILY PO Last administered on 04/15/17 09:19; Admin Dose 8 MEQ; Start 04/11/17 at 20:00 Ferric Sodium Gluconate Complex/ Sodium Chloride (Ferrlecit/NS) 110 ml @ 110 mls/hr Q24H IVPB Last administered on 04/14/17 21:17; Admin Dose 110 MLS/HR; Start 04/11/17 at 21:00; Stop 04/15/17 at 21:59 Folic Acid (Folic Acid) 1 mg DAILY GTB Last administered on 04/15/17 09:20; Admin Dose 1 MG; Start 04/11/17 at 20:00 Levothyroxine Sodium (Synthroid) 75 mcg DAILY@06 PO Last administered on 06:29; Admin Dose 75 MCG; Start 04/13/17 at 06:00 Methylprednisolone Sodium Succinate (Solu-Medrol) 40 mg Q12 IV Last administered on 04/15/17 09:19; Admin Dose 40 MG; Start 04/14/17 at 12:30 Polyethylene Glycol (Miralax) 17 gm BID PO Last administered on 04/15/17 09: 20; Admin Dose 17 GM; Start 04/14/17 at 21:00 Assessment/Plan Chief Complaint/Hosp Course Assessment 1. Traction bronchiectasis with idiopathic pulmonary fibrosis 2. Pulmonary edema possible right heart failure 2. Hypoxemic respiratory failure 4. Renal insufficiency Plan 1. CT chest noted 2.. Cardiac recommendations continue diuresis if tolerated 3. Bronchodilator therapy, low-dose steroids. 4. Aspiration precautions 5. Rheumatology evaluation in place. Patient may need senior living facility. Problems: FEMI BLAND MD, [facility] Apr 15, 2017 10:35
--- NOTE | 2017-04-15 19:22 | CONS ---
Date/Time of Note Date/Time of Note DATE: 04/15/17 TIME: 19:21 Assessment/Plan Assessment/Plan Chief Complaint/Hosp Course Dyspnea: suspect primarily due to pulmonary fibrosis Acute on chronic diastolic heart failure: euvolemic to dry by exam Dual chamber PPM: 100% paced Pulmonary fibrosis: severe on chest CT RA: ? contributing to above -off lasix -carvedilol and enalapril was discontinued due to borderline blood pressures Problems: Consultation Date/Type/Reason Admit Date/Time Apr 11, 2017 at 10:58 Initial Consult Date 04/12/17 Type of Consultation: Cardiology 24 HR Interval Summary Free Text/Dictation No acute events. Shortness of breath improving. Detailed Summary Additional Comments 14 point review of systems without changes. Exam/Review of Systems Vital Signs Vitals Vital Signs Date Time Temp Pulse Resp B/P Pulse Ox O2 Delivery O2 Flow Rate FiO2 04/15/17 18:41 98.0 70 16 95/46 98 04/15/17 16:09 Nasal Cannula 2.0 Intake and Output 04/14/17 04/14/17 04/15/17 15:00 23:00 07:00 Intake Total 810 ml 300 ml Output Total 300 ml Balance 810 ml 0 ml Exam Constitutional: alert, oriented Psych: nl mood/affect, no complaints Head: atraumatic, normocephalic Neck: No jvd Respiratory: clear to auscultation (crackles throughout ), crackles/rales Cardiovascular: regular rate and rhythm, systolic murmur (2/6 GOLDEN), No edema 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: nl mental status, nl speech Results Result Diagram: 04/15/17 0532 04/14/17 0634 Results 24 hrs Laboratory Tests Test 04/15/17 05:32 White Blood Count 6.6 # Red Blood Count 3.05 L Hemoglobin 8.8 L Hematocrit 29.6 L Mean Corpuscular Volume 97.0 Mean Corpuscular Hemoglobin 28.9 L Mean Corpuscular Hemoglobin Concent 29.7 L Red Cell Distribution Width 14.1 Platelet Count 318 Mean Platelet Volume 10.2 Neutrophils % 84.7 H Lymphocytes % 13.4 L Monocytes % 0.8 Eosinophils % 0.0 Basophils % 0.2 Nucleated Red Blood Cells % 0.0 Neutrophils # 5.6 Lymphocytes # 0.9 Monocytes # 0.1 L Eosinophils # 0.0 Basophils # 0.0 Nucleated Red Blood Cells # 0.0 Magnesium Level 2.3 B-Type Natriuretic Peptide 403 Medications Medications Current Medications Pantoprazole (Protonix Tab) 40 mg DAILY@06 PO Last administered on 04/15/17 06:29; Admin Dose 40 MG; Start 04/12/17 at 06:00 Potassium Chloride 8 meq 8 meq DAILY PO Last administered on 04/15/17 09:19; Admin Dose 8 MEQ; Start 04/11/17 at 20:00 Ferric Sodium Gluconate Complex/ Sodium Chloride (Ferrlecit/NS) 110 ml @ 110 mls/hr Q24H IVPB Last administered on 04/14/17 21:17; Admin Dose 110 MLS/HR; Start 04/11/17 at 21:00; Stop 04/15/17 at 21:59 Folic Acid (Folic Acid) 1 mg DAILY GTB Last administered on 04/15/17 09:20; Admin Dose 1 MG; Start 04/11/17 at 20:00 Levothyroxine Sodium (Synthroid) 75 mcg DAILY@06 PO Last administered on 06:29; Admin Dose 75 MCG; Start 04/13/17 at 06:00 Methylprednisolone Sodium Succinate (Solu-Medrol) 40 mg Q12 IV Last administered on 04/15/17 09:19; Admin Dose 40 MG; Start 04/14/17 at 12:30 Polyethylene Glycol (Miralax) 17 gm BID PO Last administered on 04/15/17 09: 20; Admin Dose 17 GM; Start 04/14/17 at 21:00 JULIO C SHIELDS MD Apr 15, 2017 19:22
--- NOTE | 2017-04-15 20:13 | CONS ---
Date/Time of Note Date/Time of Note DATE: 04/15/17 TIME: 20:11 Assessment/Plan Assessment/Plan Chief Complaint/Hosp Course ANEMIA, N- CYTIC WITH N RDW WITH COMPONENET ACD IMPROVED SINCE ADMISSION, POS 2 TO IMPROVEMENT OF VOLUME STATUS COMPLETE W-UP MONITOR BLOOD COUNT CLOSELY OBSERVE FOR BLEEDING AND HEMOLYSIS NO NEEDS FOR PRBC Possible underlying idiopathic primary fibrosis CT chest today Pulmonary edema possible right heart failure Hypoxemic respiratory failure Renal insufficiency INCREASED URIC ACID ALLOPURINOL RENAL DOSE Problems: Consultation Date/Type/Reason Admit Date/Time Apr 11, 2017 at 10:58 Initial Consult Date 04/12/17 Type of Consultation: HEMEONC 24 HR Interval Summary Free Text/Dictation ALL NOTED NO NEW EVENTS NO BLEEDING Exam/Review of Systems Vital Signs Vitals Vital Signs Date Time Temp Pulse Resp B/P Pulse Ox O2 Delivery O2 Flow Rate FiO2 04/15/17 19:42 97.5 70 16 98/54 97 04/15/17 16:09 Nasal Cannula 2.0 Intake and Output 04/14/17 04/14/17 04/15/17 15:00 23:00 07:00 Intake Total 810 ml 300 ml Output Total 300 ml Balance 810 ml 0 ml Exam GENERAL: Elderly [place] gentleman comfortable at rest no acute distress VITAL SIGNS: per chart NECK: Supple. No JVD or lymphadenopathy. CARDIAC EXAM: S1, S2. No added sounds or murmurs. CHEST: Coarse bibasilar rales ABDOMEN: Soft, nontender. No guarding or rebound. EXTREMITIES: No cyanosis, clubbing or edema. NEUROLOGIC: Generalized weakness. No focal deficits. DX/PLAN ANEMIA, N- CYTIC WITH N RDW WITH COMPONENET ACD IMPROVED SINCE ADMISSION, POS 2 TO IMPROVEMENT OF VOLUME STATUS COMPLETE W-UP MONITOR BLOOD COUNT CLOSELY OBSERVE FOR BLEEDING AND HEMOLYSIS NO NEEDS FOR PRBC Possible underlying idiopathic primary fibrosis CT chest today Pulmonary edema possible right heart failure Hypoxemic respiratory failure Renal insufficiency INCREASED URIC ACID ALLOPURINOL RENAL DOSE Results Result Diagram: 04/15/17 0532 04/14/17 0634 Results 24 hrs Laboratory Tests Test 04/15/17 05:32 White Blood Count 6.6 # Red Blood Count 3.05 L Hemoglobin 8.8 L Hematocrit 29.6 L Mean Corpuscular Volume 97.0 Mean Corpuscular Hemoglobin 28.9 L Mean Corpuscular Hemoglobin Concent 29.7 L Red Cell Distribution Width 14.1 Platelet Count 318 Mean Platelet Volume 10.2 Neutrophils % 84.7 H Lymphocytes % 13.4 L Monocytes % 0.8 Eosinophils % 0.0 Basophils % 0.2 Nucleated Red Blood Cells % 0.0 Neutrophils # 5.6 Lymphocytes # 0.9 Monocytes # 0.1 L Eosinophils # 0.0 Basophils # 0.0 Nucleated Red Blood Cells # 0.0 Magnesium Level 2.3 B-Type Natriuretic Peptide 403 Medications Medications Current Medications Pantoprazole (Protonix Tab) 40 mg DAILY@06 PO Last administered on 04/15/17 06:29; Admin Dose 40 MG; Start 04/12/17 at 06:00 Potassium Chloride 8 meq 8 meq DAILY PO Last administered on 04/15/17 09:19; Admin Dose 8 MEQ; Start 04/11/17 at 20:00 Ferric Sodium Gluconate Complex/ Sodium Chloride (Ferrlecit/NS) 110 ml @ 110 mls/hr Q24H IVPB Last administered on 04/14/17 21:17; Admin Dose 110 MLS/HR; Start 04/11/17 at 21:00; Stop 04/15/17 at 21:59 Folic Acid (Folic Acid) 1 mg DAILY GTB Last administered on 04/15/17 09:20; Admin Dose 1 MG; Start 04/11/17 at 20:00 Levothyroxine Sodium (Synthroid) 75 mcg DAILY@06 PO Last administered on 06:29; Admin Dose 75 MCG; Start 04/13/17 at 06:00 Methylprednisolone Sodium Succinate (Solu-Medrol) 40 mg Q12 IV Last administered on 04/15/17 09:19; Admin Dose 40 MG; Start 04/14/17 at 12:30 Polyethylene Glycol (Miralax) 17 gm BID PO Last administered on 04/15/17 09: 20; Admin Dose 17 GM; Start 04/14/17 at 21:00 IRASEMA ARAMBULA MD Apr 15, 2017 20:13
[2017-04-15] MEDS: SOD FERRIC GLUC COMPLX 125 MG in SOD CHLORIDE 0.9% 100 ML IVPB SCH (20:16)
--- NOTE | 2017-04-15 21:16 | PN ---
Date/Time of Note Date/Time of Note DATE: 04/15/17 TIME: 21:08 Assessment/Plan VTE Prophylaxis VTE Prophylaxis Intervention: ambulation, anti-embolic stocking VTE Contraindication Reason: peripheral vascular disease Lines/Catheters IV Catheter Type (from Nrs): Saline Lock Urinary Cath still in place: No Reason Cath still needed: urinary retention Assessment/Plan Assessment/Plan 1.CHF systolic on diastolic- iproving 2.Pulmonary edema- resolved 3.Rheumatoid arthritis with severe deformity of the right hand more prominent than the left. 4. History of anemia with recent more drop of h&h. 5. History of ischemic heart disease, angina, status post myocardial infarction. 6. History of irregular heart beat and ICD versus pacemaker implantation. 7. Dyslipidemia. 8. Hypothyroidism. 9. Pain syndrome. 10. Unstable gait. 11. Major depression. 12. Hearing impairment. 13. Memory impairment. 14. Posttraumatic stress disorder. His son from complications of malignant melanoma. Family is very supportive. 15.Status post fracture of the right shoulder, status post open reduction internal fixation. 16. Status post fracture and reduction of the left knee, status post knee replacement along with revision and change of prosthesis most probably. 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 Now creat 1.77; elevated 2,7- no2 2.2; continue p.o. hydration. 24.Constipation CT of th e chest:Advanced severe pulmonary fibrosis scattered throughout the lungs. The severity of disease is significantly worse when compared to the prior CT chest dated 2013. 2. 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 Cont'd Hospitalization Reason: plan to d/c in am. Subjective 24 Hr Interval Summary Free Text/Dictation NO BM x 5 days. Yesterdays measures didn't work. Fleet enema will be done today. Constitutional: improved, poor po, No chills, No diaphoresis, No disoriented, No febrile, No no complaints, No other, No requiring IVF, No requiring O2 Eyes: no complaints, visual change, No discharge, No other, No pain, No redness ENT: dysphagia, No bleeding, No congestion, No discharge, No no complaints, No other, No pain , No sore throat Respiratory: shortness of breath, No cough, No no complaints, No other, No pain, No pleuritic pain, No sputum, No wheezing Cardiovascular: lightheadedness, palpitations, No chest pain, No edema, No no complaints, No orthopenea, No other, No paroxysmal nocturnal dyspnea Gastrointestinal: constipation, passing stool, No blood, No decreased appetite, No diarrhea, No flatus, No nausea, No no complaints, No other, No pain, No vomiting Genitourinary: flank pain, No bleeding, No discharge, No dysuria, No hematuria, No no complaints, No other Musculoskeletal: back pain, bone/joint pain, neck pain, No no complaints, No other, No restricted range of motion, No swelling Skin: pruritis, No bruising, No erythema, No laceration, No no complaints, No other, No rash , No skin lesions Neurologic: dizziness, headache, No confusion, No focal-weakness, No no complaints, No other, No seizure, No syncope Psychological: anxiety, depression, No confusion, No nl mood/affect, No no complaints, No other, No suicidal Exam/Review of Systems Vital Signs Vitals Vital Signs Date Time Temp Pulse Resp B/P Pulse Ox O2 Delivery O2 Flow Rate FiO2 04/15/17 20:16 69 04/15/17 20:10 20 97 Nasal Cannula 2.0 04/15/17 19:42 97.5 98/54 Intake and Output 04/14/17 04/14/17 04/15/17 15:00 23:00 07:00 Intake Total 810 ml 300 ml Output Total 300 ml Balance 810 ml 0 ml Exam Constitutional: alert, distress, frail, oriented, well developed Psych: anxiety, depression, No confusion, No nl mood/affect, No no complaints, No other, No suicidal Head: atraumatic, normocephalic, No hematomas, No lacerations, No other Eyes: EOMI, PERRL (left pupil is deformed.), nl lids (milodly swollen.), No fundi, disc, No icteric, No nl conjunctiva, No nl sclera, No other ENMT: tympanic membranes, No intubated, No mucosa pink and moist, No nl external ears & nose, No nl lips & teeth, No nl nasal mucosa & septum, No other Neck: nuchal rigidity, No bruits, No jvd, No masses, No non-tender, No other, No supple, No thyromegaly Respiratory: congested cough, diminished breath sounds Cardiovascular: bruits Gastrointestinal: bowel sounds, non-tender, soft, No ascites, No distended, No firm, No hepatomegaly, No mass, No nl liver, spleen, No other, No rebound or guarding, No splenomegaly, No surgical scars, No tender Genitourinary - Male: nl penis, nl scrotum, No CVA tenderness, No discharge, No other Musculoskeletal: joint tenderness, muscle tone, muscle weakness, other (RA changes unchanged.) Extremities: normal pulses 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: MAINTENANCE SHOP MANAGER II-XII intact (except cn #8.) Lymph: No enlarged, No nl lymph nodes, No nontender, No other Results Result Diagram: 04/15/17 0532 04/14/17 0634 Results 24 hrs Laboratory Tests Test 04/15/17 05:32 White Blood Count 6.6 # Red Blood Count 3.05 L Hemoglobin 8.8 L Hematocrit 29.6 L Mean Corpuscular Volume 97.0 Mean Corpuscular Hemoglobin 28.9 L Mean Corpuscular Hemoglobin Concent 29.7 L Red Cell Distribution Width 14.1 Platelet Count 318 Mean Platelet Volume 10.2 Neutrophils % 84.7 H Lymphocytes % 13.4 L Monocytes % 0.8 Eosinophils % 0.0 Basophils % 0.2 Nucleated Red Blood Cells % 0.0 Neutrophils # 5.6 Lymphocytes # 0.9 Monocytes # 0.1 L Eosinophils # 0.0 Basophils # 0.0 Nucleated Red Blood Cells # 0.0 Magnesium Level 2.3 B-Type Natriuretic Peptide 403 Medications Medications Current Medications Pantoprazole (Protonix Tab) 40 mg DAILY@06 PO Last administered on 04/15/17 06:29; Admin Dose 40 MG; Start 04/12/17 at 06:00 Potassium Chloride 8 meq 8 meq DAILY PO Last administered on 04/15/17 09:19; Admin Dose 8 MEQ; Start 04/11/17 at 20:00 Ferric Sodium Gluconate Complex/ Sodium Chloride (Ferrlecit/NS) 110 ml @ 110 mls/hr Q24H IVPB Last administered on 04/15/17 20:16; Admin Dose 110 MLS/HR; Start 04/11/17 at 21:00; Stop 04/15/17 at 21:59 Folic Acid (Folic Acid) 1 mg DAILY GTB Last administered on 04/15/17 09:20; Admin Dose 1 MG; Start 04/11/17 at 20:00 Levothyroxine Sodium (Synthroid) 75 mcg DAILY@06 PO Last administered on 06:29; Admin Dose 75 MCG; Start 04/13/17 at 06:00 Methylprednisolone Sodium Succinate (Solu-Medrol) 40 mg Q12 IV Last administered on 04/15/17 20:16; Admin Dose 40 MG; Start 04/14/17 at 12:30 Polyethylene Glycol (Miralax) 17 gm BID PO Last administered on 04/15/17 20: 15; Admin Dose 17 GM; Start 04/14/17 at 21:00 MADDIE MICHAELS MD Apr 15, 2017 21:16
[2017-04-15] MEDS ORDERED: NA PHOSPHATE/BIPHOS 133 ML ENEMA PR ONE (21:30)
[2017-04-15] MEDS: DOCUSATE SODIUM 100 MG CAP PO SCH (21:44)
[2017-04-16 00:25] VITALS: PULSE 69
[2017-04-16 00:40] VITALS: BP 98/50; RESP 16
[2017-04-16 04:25] VITALS: PULSE 69
[2017-04-16 04:28] VITALS: BP 92/51; RESP 16
[2017-04-16] MEDS: PANTOPRAZOLE (EC) 40 MG TAB PO SCH (05:43)
[2017-04-16] MEDS: LEVOTHYROXINE 75 MCG TAB PO SCH (06:14)
[2017-04-16] MEDS: ALBUTEROL/IPRATROPIUM (NEB) 3 ML AMP HHN SCH (07:27)
[2017-04-16 07:35] VITALS: BP 105/58; RESP 20
[2017-04-16] MEDS: POLYETHYLENE GLYCOL 17 GM PACKET PO SCH (08:46)
[2017-04-16] MEDS: DOCUSATE SODIUM 100 MG CAP PO SCH (08:46)
[2017-04-16] MEDS: METHYLPREDNISOLONE 40 MG INJ IV SCH (08:46)
[2017-04-16] MEDS: FOLIC ACID 1 MG TAB GTB SCH (08:47)
[2017-04-16] MEDS: POTASSIUM CHLORIDE (SR) 8 MEQ CAP PO SCH (08:47)
--- NOTE | 2017-04-16 10:27 | RADRPT ---
PROCEDURE: US carotid arteries. CLINICAL INDICATION: Dizziness. Carotid bruit. TECHNIQUE: Multiple sonographic images of the carotid arteries and vertebral arteries were obtaine d utilizing cruz scale, duplex, and color-flow imaging. The images were reviewed on a PACS workstati on. COMPARISON: No prior studies are available for comparison. FINDINGS: Evaluation of the right carotid bifurcation region reveals mild atherosclerotic disease. Evaluation of the left carotid bifurcation region reveals mild atherosclerotic disease. There is antegrade flow within the vertebral arteries bilaterally. RIGHT CAROTID MEASUREMENTS: Common Carotid [id number] (cm/sec) Internal Carotid Artery 84 (cm/sec) External Carotid Artery 73 (cm/sec) Vertebral Artery 36 (cm/sec) Internal Carotid/Common Carotid1.3 LEFT CAROTID MEASUREMENTS: Common Carotid [id number] (cm/sec) Internal Carotid Artery 110 (cm/sec) External Carotid Artery 67 (cm/sec) Vertebral Artery 57 (cm/sec) Internal Carotid/Common Carotid1.4 Validated velocity measurements with angiographic measurements. Velocity criteria are extrapolated f rom diameter data as defined by the Society of Radiologists in Ultrasound Consensus Conference. Radi ology 2003; 229;340-346. This study does indirectly reference the measurement of the distal ICA tarun meter as the denominator for stenosis measurement. IMPRESSION: 1. Less than 50% stenosis bilaterally in the internal carotid arteries. 2. Normal antegrade flow in the vertebral arteries bilaterally. RPTAT: QQ SRU Consensus Conference Criteria for the Diagnosis of Carotid Artery Stenosis* Degree of Stenosis, % ICA PSV, cm/sec Plaque Estimate, % ICA/CCA PSV Ratio Normal <125 None <2.0 <50 <125 <50 <2.0 50 69 125-230 >50 2.0-4.0 >70 but less than near occlusion >230 >50 <4.0 Near occlusion High, low, or undetectable Visible Variable Total occlusion Undetectable Visible, no detectable lumen Not applicable *Cartoid artery stenosis: cruz-scale and Doppler US diagnosis. Society of Radiologists in Ultrasound Consensus Conference. Radiology 2003; 229: 340-346 .Rohan Townsend MD, Date Time Electronically viewed and signed by .Rohan Townsend MD, on 04/16/2017 10:27 .R/
[2017-04-16 11:24] VITALS: BP 100/52; RESP 20
--- NOTE | 2017-04-16 22:20 | CONS ---
Date/Time of Note Date/Time of Note DATE: 04/16/17 TIME: 09:18 VK LE Assessment/Plan Assessment/Plan Chief Complaint/Hosp Course ANEMIA, N- CYTIC WITH N RDW C/W ACD STABLE OK TO DC D/W DAUGHTER Possible underlying idiopathic primary fibrosis PULM F-UP Pulmonary edema possible right heart failure Hypoxemic respiratory failure Renal insufficiency Problems: Consultation Date/Type/Reason Admit Date/Time Apr 11, 2017 at 10:58 Initial Consult Date 04/12/17 Type of Consultation: [facility] Referring Provider: MADDIE MICHAELS MD 24 HR Interval Summary Free Text/Dictation FELLING BETTER Exam/Review of Systems Vital Signs Vitals Vital Signs Date Time Temp Pulse Resp B/P Pulse Ox O2 Delivery O2 Flow Rate FiO2 04/16/17 11:50 2.0 04/16/17 11:24 97.9 70 20 100/52 94 04/16/17 08:00 Nasal Cannula Intake and Output 04/15/17 04/15/17 04/16/17 15:00 23:00 07:00 Intake Total 810 ml Output Total 400 ml Balance 410 ml Exam GENERAL: Elderly [place] gentleman comfortable at rest no acute distress VITAL SIGNS: per chart NECK: Supple. No JVD or lymphadenopathy. CARDIAC EXAM: S1, S2. No added sounds or murmurs. CHEST: Coarse bibasilar rales ABDOMEN: Soft, nontender. No guarding or rebound. EXTREMITIES: No cyanosis, clubbing or edema. NEUROLOGIC: Generalized weakness. No focal deficits. Results Result Diagram: 04/15/17 0532 04/14/17 0634 Results 24 hrs Laboratory Tests Test 04/15/17 23:00 Stool Occult Blood NEGATIVE IRASEMA ARAMBULA MD Apr 16, 2017 22:20
--- NOTE | 2017-04-16 22:20 | CONS ---
Date/Time of Note Date/Time of Note DATE: 04/16/17 TIME: 09:18 VK LE Assessment/Plan Assessment/Plan Chief Complaint/Hosp Course ANEMIA, N- CYTIC WITH N RDW C/W ACD STABLE OK TO DC D/W DAUGHTER Possible underlying idiopathic primary fibrosis PULM F-UP Pulmonary edema possible right heart failure Hypoxemic respiratory failure Renal insufficiency Problems: Consultation Date/Type/Reason Admit Date/Time Apr 11, 2017 at 10:58 Initial Consult Date 04/12/17 Type of Consultation: [facility] [place] Referring Provider: MADDIE MICHAELS MD 24 HR Interval Summary Free Text/Dictation FELLING BETTER Exam/Review of Systems Vital Signs Vitals Vital Signs Date Time Temp Pulse Resp B/P Pulse Ox O2 Delivery O2 Flow Rate FiO2 04/16/17 11:50 2.0 04/16/17 11:24 97.9 70 20 100/52 94 04/16/17 08:00 Nasal Cannula Intake and Output 04/15/17 04/15/17 04/16/17 15:00 23:00 07:00 Intake Total 810 ml Output Total 400 ml Balance 410 ml Exam GENERAL: Elderly Stateless gentleman comfortable at rest no acute distress VITAL SIGNS: per chart NECK: Supple. No JVD or lymphadenopathy. CARDIAC EXAM: S1, S2. No added sounds or murmurs. CHEST: Coarse bibasilar rales ABDOMEN: Soft, nontender. No guarding or rebound. EXTREMITIES: No cyanosis, clubbing or edema. NEUROLOGIC: Generalized weakness. No focal deficits. Results Result Diagram: 04/15/17 0532 04/14/17 0634 Results 24 hrs Laboratory Tests Test 04/15/17 23:00 Stool Occult Blood NEGATIVE IRASEMA ARAMBULA MD Apr 16, 2017 22:20
--- NOTE | 2017-04-17 13:55 | DS ---
Date/Time of Note Date/Time of Note DATE: 04/17/17 TIME: 13:54 Discharge Summary Admission/Discharge Info Admit Date/Time Apr 11, 2017 at 10:58 Discharge Date/Time Apr 16, 2017 at 11:50 Discharge Diagnosis 1.CHF systolic on diastolic- iproving 2.Pulmonary edema- resolved 3.Rheumatoid arthritis with severe deformity of the right hand more prominent than the left. 4. History of anemia with recent more drop of h&h. 5. History of ischemic heart disease, angina, status post myocardial infarction. 6. History of irregular heart beat and ICD versus pacemaker implantation. 7. Dyslipidemia. 8. Hypothyroidism. 9. Pain syndrome. 10. Unstable gait. 11. Major depression. 12. Hearing impairment. 13. Memory impairment. 14. Posttraumatic stress disorder. His son from complications of malignant melanoma. Family is very supportive. 15.Status post fracture of the right shoulder, status post open reduction internal fixation. 16. Status post fracture and reduction of the left knee, status post knee replacement along with revision and change of prosthesis most probably. 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 Now creat 1.77; elevated 2,7- no2 2.2; continue p.o. hydration. 24.Constipation CT of chest:Advanced severe pulmonary fibrosis scattered throughout the lungs. The severity of disease is significantly worse when compared to the prior CT chest dated 2013. 2. 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 Cont'd Hospitalization Reason: plan to d/c in am. Patient Condition: Fair Hx of Present Illness This is an 87-year-old male presents to the ER for evaluation of shortness of breath. He has had progressively worsening shortness of breath last 4-5 days, the worst over the past 2 days. He can't walk, he can't take care of himself due to of debilitating RA. He denies any chest pain,dizziness, loc , melena, hemoptysis, falls or diarrhea. The patient denies any fevers associated with this and came to the emergency room for evaluation. Patient denies any factors for his symptoms Hospital Course ANEMIA, N- CYTIC WITH N RDW C/W ACD STABLE OK TO DC D/W DAUGHTER Possible underlying idiopathic primary fibrosis PULM F-UP Pulmonary edema possible right heart failure Hypoxemic respiratory failure Renal insufficiency Home Meds Reported Medications Carvedilol* (Coreg*) 12.5 Mg Tablet, 12.5 MG PO BID 08/09/13 Cholecalciferol* (Vitamin D*) 5,000 Unit Tablet, 5000 UNIT PO once a week 08/09/13 Folic Acid* (Folic Acid*) 1 Mg Tablet, 1 MG PO DAILY 08/09/13 Rosuvastatin Calcium* (Crestor*) 10 Mg Tablet, 10 MG PO DAILY 08/09/13 Celecoxib* (Celebrex*) 100 Mg Capsule, 200 MG PO BID 08/09/13 Levothyroxine Sodium* (Levothyroxine Sodium*) 300 Mcg Tablet, 50 MCG PO DAILY 08/09/13 Leflunomide* (Leflunomide*) 20 Mg Tablet, 20 MG PO DAILY 08/09/13 Follow-up Plan In 3-4 days to pmd. Primary Care Provider Toan Michaels MD Time spent on discharge: > 30 minutes TOAN MICHAELS MD Apr 17, 2017 13:55
== END 2017-04-16 11:50 | disposition home or self-care (01) | DRG 291 ==
LOC: E/R 08:29 → TEL 10:58
PROVIDERS: ADMIT Family Medicine; ATTEND Family Medicine
DX: I50.33 Acute on chronic diastolic (congestive) heart failure (principal); J96.00 Acute respiratory failure, unspecified whether with hypoxia or hypercapnia; R64 Cachexia; I13.0 Hypertensive heart and chronic kidney disease with heart failure and stage 1 through stage 4 chronic kidney disease, or unspecified chronic kidney disease; D64.9 Anemia, unspecified; M06.9 Rheumatoid arthritis, unspecified; F32.9 Major depressive disorder, single episode, unspecified; E03.9 Hypothyroidism, unspecified; E78.5 Hyperlipidemia, unspecified; N18.9 Chronic kidney disease, unspecified; R26.81 Unsteadiness on feet; H91.90 Unspecified hearing loss, unspecified ear; R41.3 Other amnesia; F43.10 Post-traumatic stress disorder, unspecified; H54.40 Blindness, one eye, unspecified eye; K59.00 Constipation, unspecified; Z68.28 Body mass index [BMI] 28.0-28.9, adult
CPT/HCPCS: 36415; 71010; 71250; 72170; 73560; 76856; 80048; 80053; 82164; 82270; 82306; 82378; 82550; 82553; 82607; 82668; 82728; 82746; 82784; 83010; 83540; 83615; 83735; 83880; 84153; 84154; 84155; 84165; 84443; 84484; 84560; 85025; 85045; 85651; 86021; 86140; 86200; 86430; 90686; 93005; 93306; 93880; 94640; 94664; 96374; J1940; J0702; J2916; J2920; J3475; J7040